=== PATIENT | male | born 1955 | race Caucasian/White ===

== ENCOUNTER → 2020-10-21 13:27 | Outpatient (CLI) | payer MEDICARE, SELFPAY ==
--- NOTE | 2020-11-04 14:56 | WPDHOMESLEEP ---
Sleep Study - Home Unattended Date of Study: 10/21/20 Ordering Provider: Saleem Collier MD Interpreting Provider: Alexandra Pineda MD Home Sleep Study Type: Apnea Link Air Height: 1.83 m Weight: 79.379 kg Body Mass Index: 23.7 Neck Circumference (inches): 14.75 [place]: 4 Reason for Sleep Study Elevated hemoglobin, low oxygen saturation by pulse oximetry Sleep History Matthew House is a 65 year old man with an elevated hemoglobin on July 25, 2020 with H/H 18/51.5. He had a [employer] overnight oximetry on room air July 30, 2020 that showed an oxygen desaturation index of 22 events per hour and a minimum saturation of 86%. He rarely awakens from sleep feeling short of breath. He does not awaken at night with heartburn, belching or coughing. He frequently snores, occasionally loudly enough that others complain about it. He rarely wakes up gasping for breath at night. He occasionally has trouble sleeping with a cold. He rarely has breathing problems at night observed by others. He does not sweat excessively at night. Occasionally notices his heart pounding or beating irregularly night. He does not fall asleep during the day, does not fall asleep involuntarily or while driving. He does not have loss of muscle tone was strong emotion. He does not have daytime difficulties due to excessive sleepiness. He does not feel paralyzed on waking or falling asleep. He rarely has vivid dreamlike scenes upon awakening or falling asleep. He does not feel afraid to go to sleep. He does not have nightmares. He occasionally members his dreams. He occasionally has racing thoughts. He does not feel sad or depressed. He rarely has anxiety. He does not have muscular tension. He rarely notices parts of his body jerking. He does not kick at night or have crawling or aching feelings in his legs. He rarely has any kind of leg pain at night. He does not have morning jaw pain. He does not grind his teeth during sleep. He rarely is bothered by pain during the day. He never is awakened by pain at night. He rarely wakes up feeling stiff in the morning, rarely with sore achy muscles rarely with pain in the neck and spine. He has vertigo. Normal bedtime 10 to 10:30 p.m. falling asleep usually within 10-15 minutes, waking 1 or 2 times, staying awake on average for 2-3 minutes. During this time he may pray, think over things in his life, and then he returns to sleep very quickly. He wakes the morning between 5:00 a.m. and 5:30 a.m.. His weekend schedule shows that he stays awake till 11:00 p.m. and wakes between 6:30 a.m. and 7:00 a.m., overall keeping the same schedule through out the week. He does not take naps. He often awakens feeling refreshed but this does not last all day. Habits: never smoked tobacco. CT the unusually 1 per day. Alcohol 0-1. Only occasionally. No recreational drugs. [facility] Past Medical History Medical History (Updated 11/04/20 @ 15:06 by Alexandra Pineda MD) COVID-26 apr 2020 Hypothyroidism (acquired) Mixed hyperlipidemia Polycythemia Surgical History Surgical History H/O mitral valve repair Hx of cholecystectomy Hx of hernia repair Family History Family History Other Carcinoma of colon Cerebrovascular accident Hypertension Social History Social History Smoking status: Never smoker Alcohol intake: never Medications Home Medications Medication Instructions Recorded Confirmed Type aspirin 81 mg tablet,delayed 81 mg PO DAILY 08/24/19 08/11/20 History release atenolol 25 mg tablet 25 mg PO DAILY #90 tablet 06/17/20 08/11/20 Rx levothyroxine 50 mcg tablet 50 mcg PO DAILY #90 tablet 06/26/20 08/11/20 Rx atorvastatin 10 mg tablet 10 mg PO DAILY #90 tablet 07/08/20 08/11/20 Rx Sleep Procedure This test was performed kayla
[2020-11-04 15:08] VITALS: BMI 23.7
== END ==
PROVIDERS: PCP Family Medicine; Visit Provider Family Medicine
DX: G47.33 Obstructive sleep apnea (adult) (pediatric) (principal)
CPT/HCPCS: 95806

== ENCOUNTER 2021-03-12 20:00 | Outpatient (CLI) | payer MEDICARE, SELFPAY ==
--- NOTE | 2021-04-01 09:43 | WPDSLEEPSTUD ---
Sleep Study Date of Study: 03/12/21 <Karen Salgado DO - Last Filed: 04/01/21 10:12> Ordering Provider: Saleem Collier MD <Karen Salgado DO - Last Filed: 04/01/21 10:12> Interpreting Physician: Karen Salgado DO <Karen Salgado DO - Last Filed: 04/01/21 10:12> Sleep Study Type: Polysomnogram <Karen Salgado DO - Last Filed: 04/01/21 10:12> Height: 1.83 m <Karen Salgado DO - Last Filed: 04/01/21 10:12> Weight: 79.379 kg <Karen Salgado DO - Last Filed: 04/01/21 10:12> Body Mass Index: 23.7 <Karen Salgado DO - Last Filed: 04/01/21 10:12> Neck Circumference (inches): 16 <Karen Salgado DO - Last Filed: 04/01/21 10:12> [place]: 2 <Karen Salgado DO - Last Filed: 04/01/21 10:12> Reason for Sleep Study The patient had an HSAT on 10/21/20 that showed an AHI of 4. With his polycythemia, unrefreshing sleep and daytime hypersomnia, it was recommended that he have a Splt lab study. <Karen Salgado DO - Last Filed: 04/01/21 10:12> Sleep History The patient is a 65 year old male with polycythemia, hypothyroidism and hyperlipidemia that had a home sleep test done in October 2020 that was negative for sleep disordered breathing. The patient was recommended to have a split night study due to his polycythemia and daytime symptoms. The patient states that he rarely awakens from sleep short of breath. He rarely awakens at night with heartburn, belching or cough. He occasionally snores loud enough that others complain. He occasionally has trouble sleeping when he has a [place]. He rarely wakes up gasping for air throughout the night. He rarely has breathing problems at night observed by others. He denies sweating excessively at night. He rarely has heart palpitations throughout the night. He denies falling asleep during the day and while driving. He denies sleep paralysis and cataplexy. He denies having trouble at school or work due to sleepiness. He rarely experiences vivid dreamlike scenes upon awakening or falling asleep. He denies having nightmares. He really has thoughts racing through his mind. He denies feeling sad or depressed. He really feels anxious. He rarely notices parts of his body jerk. He denies taking throughout the night. He denies crawling and aching feelings in his legs. He rarely experiences leg pain during the night. He knee denies grinding his teeth during sleep and awakening with jaw pain in the morning. He is really bothered by pain during the day and is never awakened by pain during the night. He rarely wakes up feeling stiff in the morning with sore and achy muscles. The patient goes to bed between 10 and 10:30 p.m. on both weekdays and weekends. It takes him 15-20 minutes to fall asleep. He will wake up 1-2 times throughout the night. When he awakens, he will try to fall back asleep or pray. He usually stays awake for a few minutes. He wakes up between 5 and 5:30 a.m. on the weekdays and between 6 and 6:30 a.m. on the weekends. He typically gets 6-7 hours of sleep per night. On the weekdays, he will get up immediately when he awakens. On the weekends, he will spend 30-40 minutes in bed after awakening. He currently lives with his , daughter, son-in-law and granddaughter. The patient denies consuming any caffeinated beverages within 2 hours of bedtime. He does not engage in physical exercise before bedtime. He will watch TV and read before falling asleep. He denies taking naps in the afternoon or the evening. He will drink 1 caffeinated beverage per day. He will drink 1-2 alcoholic beverages per week. He denies tobacco and recreational drug use. <Karen Salgado, - Last Filed: 04/01/21 10:12> [facility] Past Medical History Medical History: Medical History COVID-26 apr 2020 Hypothyroidism (acquired) Mixed hyperli
[2021-04-01 09:50] VITALS: BMI 23.7
== END 2021-03-13 08:09 | disposition home or self-care (01) ==
LOC: ANHCSM 03-13 07:54
PROVIDERS: PCP Family Medicine; Visit Provider Family Medicine
DX: G47.33 Obstructive sleep apnea (adult) (pediatric) (principal); R06.83 Snoring
CPT/HCPCS: 95810

== ENCOUNTER 2022-01-25 10:08 | Outpatient (CLI) | payer MEDICARE, SELFPAY ==
[2022-01-25 20:36] LABS: Basophils Absolute Auto 0.1 K/mm3 (0.0-0.1); Basophils Percent Auto 1.4 % (0.2-1.2); Eosinophils Absolute Auto 0.3 K/mm3 (0-0.3); Eosinophils Percent Auto 5.3 % (0-4.4); Immature Granulocyte Absolute 0.06 K/mm3 (0.00-0.031); Immature Granulocyte Percent A 1.1 % (0-0.5); Lymphocytes Absolute Auto 1.38 K/mm3 (0.9-3.2); Mean Corpuscular HGB Conc 32.9 g/dl (32-36); Mean Corpuscular Hemoglobin 32.4 pg (26-34); Mean Corpuscular Volume 98.7 fl (80-100); Mean Platelet Volume 10.8 fl (7.4-10.4); Monocytes Absolute Auto 0.6 K/mm3 (0.1-0.6); Monocytes Percent Auto 11.1 % (2.6-8.5); Neutrophils Absolute Auto 3.1 K/mm3 (1.3-6.7); Neutrophils Percent Auto 56.1 % (45.5-73.1); Platelet Count Result 208 k/mm3 (150-375); Red Blood Count 5.27 M/mm3 (4.6-6.20); Red Cell Distribution Width 12.4 % (11.5-14.5); White Blood Count 5.5 K/mm3 (4.5-10.0)
[2022-01-25 20:53] LABS: Hemoglobin 17.1 g/dL (14.0-18.0)
[2022-01-25 21:11] LABS: Alanine Aminotransferase 46 U/L (6-50); Albumin Level 4.4 g/dL (3.5-5.1); Alkaline Phosphatase 107 U/L (38-126); Anion Gap 9 mmol/L (8-16); Aspartate Amino Transferase 56 U/L (17-59); Bilirubin,Total 0.9 mg/dL (0.2-1.3); Blood Urea Nitrogen 13 mg/dL (9-20); Calcium 9.3 mg/dL (8.4-10.2); Carbon Dioxide 29 mmol/L (22-30); Chloride 100 mmol/L (98-107); Cholesterol 141 mg/dL (0-200); Estimated Glomerular Filt Rate > 60; Glucose 96 mg/dL (65-110); HDL Direct 29 mg/dL; Potassium 4.2 mmol/L (3.4-5.0); Sodium 138 mmol/L (137-145); Triglycerides 254 mg/dL (<150)
[2022-01-25 21:22] LABS: LDL Cholesterol Direct 68 mg/dL
== END 2022-01-25 10:09 | disposition home or self-care (01) ==
LOC: ANHGOSHLAB 10:10
PROVIDERS: PCP Family Medicine; Visit Provider Family Medicine
DX: E78.2 Mixed hyperlipidemia (principal); E03.9 Hypothyroidism, unspecified; D75.1 Secondary polycythemia; Z12.5 Encounter for screening for malignant neoplasm of prostate
CPT/HCPCS: 36415; 80053; 80061; 84153; 84443; 85025; G0103

== ENCOUNTER 2022-08-09 09:42 | Outpatient (CLI) | payer MEDICARE, SELFPAY ==
[2022-08-09 12:36] LABS: Basophils Absolute Auto 0.1 K/mm3 (0.0-0.1); Basophils Percent Auto 1.3 % (0.2-1.2); Eosinophils Absolute Auto 0.2 K/mm3 (0-0.3); Hematocrit 52.1 % (42.0-52.0); Hemoglobin 17.1 g/dL (14.0-18.0); Immature Granulocyte Absolute 0.05 K/mm3 (0.00-0.031); Lymphocytes Percent Auto 24.7 % (18.3-44.2); Mean Corpuscular HGB Conc 32.8 g/dl (32-36); Mean Corpuscular Hemoglobin 32.7 pg (26-34); Mean Corpuscular Volume 99.6 fl (80-100); Mean Platelet Volume 10.6 fl (7.4-10.4); Monocytes Absolute Auto 0.5 K/mm3 (0.1-0.6); Monocytes Percent Auto 9.3 % (2.6-8.5); Neutrophils Absolute Auto 3.1 K/mm3 (1.3-6.7); Neutrophils Percent Auto 59.7 % (45.5-73.1); Platelet Count Result 202 k/mm3 (150-375); Red Blood Count 5.23 M/mm3 (4.6-6.20); Red Cell Distribution Width 12.4 % (11.5-14.5); White Blood Count 5.3 K/mm3 (4.5-10.0)
[2022-08-09 12:44] LABS: Alanine Aminotransferase 46 U/L (6-50); Albumin Level 4.3 g/dL (3.5-5.1); Alkaline Phosphatase 102 U/L (38-126); Anion Gap 4 mmol/L (8-16); Aspartate Amino Transferase 41 U/L (17-59); Bilirubin,Total 0.9 mg/dL (0.2-1.3); Blood Urea Nitrogen 12 mg/dL (9-20); Carbon Dioxide 35 mmol/L (22-30); Chloride 98 mmol/L (98-107); Cholesterol 141 mg/dL (0-200); Estimated Glomerular Filt Rate > 60; Glucose 99 mg/dL (65-110); HDL Direct 28 mg/dL; Potassium 4.1 mmol/L (3.4-5.0); Sodium 137 mmol/L (137-145); Triglycerides 250 mg/dL (<150)
[2022-08-09 12:55] LABS: LDL Cholesterol Direct 78 mg/dL
[2022-08-09 13:15] LABS: Prostate Specific Antigen 3.2 ng/mL (< OR = 4.0)
== END 2022-08-09 09:43 | disposition home or self-care (01) ==
LOC: ANHGOSHLAB 09:43
PROVIDERS: PCP Family Medicine; Visit Provider Family Medicine
DX: E78.2 Mixed hyperlipidemia (principal); Z12.5 Encounter for screening for malignant neoplasm of prostate; E03.9 Hypothyroidism, unspecified; R97.20 Elevated prostate specific antigen [PSA]
CPT/HCPCS: 36415; 80053; 80061; 84153; 84443; 85025; G0103

== ENCOUNTER 2023-03-04 09:36 | Outpatient (CLI) | payer MEDICARE, SELFPAY ==
[2023-03-04 11:58] LABS: Cholesterol 131 mg/dL (0-200); HDL Direct 27 mg/dL; Triglycerides 163 mg/dL (<150)
[2023-03-04 12:11] LABS: LDL Cholesterol Direct 77 mg/dL
== END 2023-03-04 09:37 | disposition home or self-care (01) ==
LOC: ANHGOSHLAB 09:39
PROVIDERS: PCP Family Medicine; Visit Provider Physician Assistant
DX: E78.5 Hyperlipidemia, unspecified (principal)
CPT/HCPCS: 36415; 80061

== ENCOUNTER 2023-09-14 15:33 | Outpatient (CLI) | payer MEDICARE, SELFPAY ==
--- NOTE | ~2023-09-14 | XR_ITS ---
EXAMINATION: XR shoulder LT min 2V DATE: 09/14/2023 16:21 INDICATION: Left shoulder pain TECHNIQUE: AP internally and externally rotated, AP oblique externally rotated and transscapular Y vi ews of the left shoulder were obtained. COMPARISON: None FINDINGS: Normal alignment. No fracture. Negligible left glenohumeral and acromioclavicular osteoarthritis. [place] at the left humeral head. Visualized portion of the lungs are clear. Prior heart valve repa ir. Soft tissues are unremarkable. 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 Reviewed, dictated and finalized at location A.
== END 2023-09-14 15:34 ==
LOC: GOSHIMG 15:34
PROVIDERS: PCP Family Medicine; Visit Provider Nurse Practitioner Family
DX: M19.012 Primary osteoarthritis, left shoulder (principal)
CPT/HCPCS: 73030

== ENCOUNTER 2024-03-16 09:33 | Outpatient (CLI) | payer MEDICARE, SELFPAY ==
[2024-03-16 14:28] LABS: Basophils Absolute Auto 0.1 K/mm3 (0.0-0.1); Basophils Percent Auto 1.3 % (0.2-1.2); Eosinophils Absolute Auto 0.2 K/mm3 (0-0.3); Eosinophils Percent Auto 3.9 % (0-4.4); Hematocrit 50.6 % (42.0-52.0); Hemoglobin 16.6 g/dL (14.0-18.0); Immature Granulocyte Absolute 0.02 K/mm3 (0.00-0.031); Immature Granulocyte Percent A 0.4 % (0-0.5); Lymphocytes Absolute Auto 1.26 K/mm3 (0.9-3.2); Lymphocytes Percent Auto 27.5 % (18.3-44.2); Mean Corpuscular HGB Conc 32.8 g/dl (32-36); Mean Corpuscular Hemoglobin 32.4 pg (26-34); Mean Corpuscular Volume 98.8 fl (80-100); Mean Platelet Volume 10.8 fl (7.4-10.4); Monocytes Absolute Auto 0.6 K/mm3 (0.1-0.6); Monocytes Percent Auto 13.1 % (2.6-8.5); Neutrophils Absolute Auto 2.5 K/mm3 (1.3-6.7); Neutrophils Percent Auto 53.8 % (45.5-73.1); Platelet Count Result 184 k/mm3 (150-375); Red Blood Count 5.12 M/mm3 (4.6-6.20); Red Cell Distribution Width 12.3 % (11.5-14.5); White Blood Count 4.6 K/mm3 (4.5-10.0)
[2024-03-16 15:52] LABS: Alanine Aminotransferase 44 U/L (6-50); Albumin Level 4.3 g/dL (3.5-5.1); Alkaline Phosphatase 103 U/L (38-126); Anion Gap 7 mmol/L (4-12); Aspartate Amino Transferase 41 U/L (17-59); Bilirubin,Total 1.3 mg/dL (0.2-1.3); Blood Urea Nitrogen 14 mg/dL (9-20); Calcium 9.1 mg/dL (8.4-10.2); Carbon Dioxide 31 mmol/L (22-30); Chloride 100 mmol/L (98-107); Cholesterol 134 mg/dL (0-200); Estimated Glomerular Filt Rate > 60; Glucose 96 mg/dL (65-110); HDL Direct 29 mg/dL; Potassium 4.2 mmol/L (3.4-5.0); Sodium 138 mmol/L (137-145); Triglycerides 204 mg/dL (<150)
[2024-03-16 16:04] LABS: LDL Cholesterol Direct 65 mg/dL
[2024-03-16 16:12] LABS: Hepatitis C Virus Antibody Negative (Negative)
[2024-03-16 16:24] LABS: Prostate Specific Antigen 3.8 ng/mL (< OR = 4.0)
== END 2024-03-16 09:34 | disposition home or self-care (01) ==
PROVIDERS: PCP Family Medicine; Visit Provider Nurse Practitioner Family
DX: H81.20 Vestibular neuronitis, unspecified ear (principal); E78.2 Mixed hyperlipidemia; E03.9 Hypothyroidism, unspecified; D75.1 Secondary polycythemia; R97.20 Elevated prostate specific antigen [PSA]; Z11.59 Encounter for screening for other viral diseases; Z12.5 Encounter for screening for malignant neoplasm of prostate
CPT/HCPCS: 36415; 80053; 80061; 84153; 84443; 85025; 86803; G0103

== ENCOUNTER 2024-06-29 00:20 | Day surgery (SDC) | payer MEDICARE, SELFPAY ==
[2024-06-25 13:59] VITALS: BMI 25.1
--- OUTSIDE RECORDS SUMMARY | 2024-06-29 00:22 | XMS_ITS | Clinical Summary ---
Author Organization [facility] Address [address] [address] Care Team Providers Care Skills Auditor Name Role Phone Unavailable Primary Care Provider Unavailabl e Source Comments [facility],non-owned Affiliates and Associated Physician Practices is amultiple site organization consisting of ambulatory clinics and hospital sitesin [place], [place], [place] and [place]. This disclosure is being madepursuant to the Care Everywhere program and may not contain all information available regarding this patient. Last updated 18.[facility] Encounters Date Type Department Care Team Description 04/16/2024 Lab Requisition [facility] - DermPath Lab [address] [place] [address] Yash Lewis MD Neoplasm of uncertain behavior of skin from Last 3 Months Social History Tobacco Use Types Packs/Day Years Used Date Smoking Tobacco: Never Assessed Sex and Gender Information Value Date Recorded Sex Assigned at Not on file Gender Identity Not on file Sexual Orientation Not on file Plan of Treatment Health Maintenance Due Date Last Done Comments COLOGUARD (AGES 45-75) - COL ON CA SCREENING 1954 COLON MONITORING 1954 COLONOSCOPY - COLON CA SCREENING 1954 CT COLONOGRAPHY - COLON CA SCREENING 1954 Colorectal Cancer Screening 1954 FIT - COLON CA SCREENING 1954 FLEX SIG - COLON CA SCREENING 1954 LIPID TESTING 1954 HEPATITIS C SCREENING 08/21/1972 DTAP/TDAP/TD VACCINES (1 - Tdap) 1973 PNEUMOCOCCAL VACCINE 50+ (1 of 1 - PCV) 2004 ZOSTER VACCINE (1 of 2) 2004 COVID-19 VACCINE (1 - 2023-2 5 season) 2024 INFLUENZA VACCINE (#1) 2024 DEPRESSION SCREENING 05/09/2024 MEDICARE AWV CALENDAR YEAR 2024 Respiratory Syncytial Virus (RSV) Vaccine Pt: or over 60 yrs (1 - 1-dose 75+ series) 2029 HEPATITIS B VACCINE Aged Out No longe r eligible based on patient's age to complete this topic HIB VACCINE Aged Out No longer eligi ble based on patient's age to complete this topic HPV VACCINE Aged Out No longer eligi ble based on patient's age to complete this topic MENINGOCOCCAL (Group B) VACCINE Aged Out No longer eligible based on patient's age to complete this topic MENINGOCOCCAL VACCINE Aged Out No lisa chuck eligible based on patient's age to complete this topic Procedures Procedure Name Priority Date/Time Associated Diagnosis Comments DERMATOPATHOLOGY Routine 04/16/2024 3:33 AM INSTRUCTIONAL LEADER Neoplasm of uncertain behavior of skin from Last 3 Months Results * DERMATOPATHOLOGY (04/16/2024 3:33 AM INSTRUCTIONAL LEADER) Case Report Dermatopathology Report Case: [id number] Authorizing Provider: Yash Lewis MD Collected: 04/16/2024 03:33 AM Ordering Location: [facility] - Received: 04/17/2024 12:18 PM DermPath Lab Pathologist: Yvonne White MD Specimen: Skin, right mid back 4 4:25 PM INSTRUCTIONAL LEADER DERMATOPATHOLOGY LABORATORY Final Diagnosis Specimen A. SKIN, right mid back: LICHEN PLANUS-LIKE KERATOSIS (BENIGN LICHENOID KERATOSIS) (L82.1) 4 4:25 PM INSTRUCTIONAL LEADER DERMATOPATHOLOGY LABORATORY Clinical History Pigmented BCC vs atypical nevus 4 4:25 PM INSTRUCTIONAL LEADER DERMATOPATHOLOGY LABORATORY Gross Description Specimen A: Received is one formalin filled container labeled with the patient's name and designated right mid back. The specimen consists of a shave biopsy measuring 6x5x1 mm. Jar 0. 4 4:25 PM INSTRUCTIONAL LEADER DERMATOPATHOLOGY LABORATORY Microscopic Description Specimen A. SKIN, right mid back: The epidermis is mildly acanthotic. There is a lichenoid infiltrate with vacuolar changes of basilar keratinocytes and scattered necrotic keratinocytes. 4 4:25 PM [facility] DERMATOPATHOLOGY LABORATORY Disclaimer An external and internal positive and negative controls are appropriate for the histochemical, immunohistochemical and immunofluorescence stain(s) in this case (if any), except where stated explicitly. The performance characteristics of the stain(s) cited in this report were developed and its performance characteristic determined by the Dermatopathology Laboratory at [facility], directed by Dr. Melissa De Guzman. These tests need not be, and therefore are not, approved by the [place] Food and Drug Administration. The tests are used for clinical purposes. Billing Codes Specimen Charges Stain Charges 47155 1 4 4:25 PM INSTRUCTIONAL LEADER DERMATOPATHOLOGY LABORATORY Embedded Images 4 4:25 PM INSTRUCTIONAL LEADER DERMATOPATHOLOGY LABORATORY Pathology/Cytolo gy TISSUE SPECIMEN FROM SKIN / Unknown 04/16/2024 3:33 AM INSTRUCTIONAL LEADER 04/17/2024 12:18 PM INSTRUCTIONAL LEADER Yash Lewis MD LAB - PATHOLOGY/CYTO LOGY ORDERABLES DERMATOPATHOLOGY LABORATORY [facility] - Department of Dermatology [facility] Medicine [address] [place] [address], [address] [phone] from Last 3 Months
--- OUTSIDE RECORDS SUMMARY | 2024-06-29 00:22 | XMS_ITS | Referral Summary ---
Author Organization [facility] Address [address] [place] [address] Care Team Providers Care Chicken Fancier Name Role Phone Unavailable Primary Care Provider Unavailabl e Source Comments [facility],non-owned Affiliates and Associated Physician Practices is amultiple site organization consisting of ambulatory clinics and hospital sitesin [place], [place], [place] and [place]. This disclosure is being madepursuant to the Care Everywhere program and may not contain all information available regarding this patient. Last updated 18.[facility] Encounters Date Type Department Care Team Description 04/16/2024 Lab Requisition [facility] - DermPath Lab [address] [facility] [address] [place] [address] Yash Lewis MD Neoplasm of uncertain behavior of skin from Last 3 Months Social History Tobacco Use Types Packs/Day Years Used Date Smoking Tobacco: Never Assessed Sex and Gender Information Value Date Recorded Sex Assigned at Not on file Gender Identity Not on file Sexual Orientation Not on file Plan of Treatment Not on file Procedures Procedure Name Priority Date/Time Associated Diagnosis Comments DERMATOPATHOLOGY Routine 04/16/2024 3:33 AM WELDER RAILCAR MECHANIC Neoplasm of uncertain behavior of skin from Last 3 Months Results * DERMATOPATHOLOGY (04/16/2024 3:33 AM WELDER RAILCAR MECHANIC) Case Report Dermatopathology Report Case: [id number] Authorizing Provider: Yash Lewis MD Collected: 04/16/2024 03:33 AM Ordering Location: [facility] - Received: 04/17/2024 12:18 PM DermPath Lab Pathologist: Yvonne White MD Specimen: Skin, right mid back 12/11/202 4 4:25 PM WELDER RAILCAR MECHANIC DERMATOPATHOLOGY LABORATORY Final Diagnosis Specimen A. SKIN, right mid back: LICHEN PLANUS-LIKE KERATOSIS (BENIGN LICHENOID KERATOSIS) (L82.1) 4 4:25 PM WELDER RAILCAR MECHANIC DERMATOPATHOLOGY LABORATORY Clinical History Pigmented BCC vs atypical nevus 4 4:25 PM [facility] DERMATOPATHOLOGY LABORATORY Gross Description Specimen A: Received is one formalin filled container labeled with the patient's name and designated right mid back. The specimen consists of a shave biopsy measuring 6x5x1 mm. Jar 0. 4 4:25 PM WELDER RAILCAR MECHANIC DERMATOPATHOLOGY LABORATORY Microscopic Description Specimen A. SKIN, right mid back: The epidermis is mildly acanthotic. There is a lichenoid infiltrate with vacuolar changes of basilar keratinocytes and scattered necrotic keratinocytes. 4 4:25 PM [facility] DERMATOPATHOLOGY LABORATORY Disclaimer An external and internal positive and negative controls are appropriate for the histochemical, immunohistochemical and immunofluorescence stain(s) in this case (if any), except where stated explicitly. The performance characteristics of the stain(s) cited in this report were developed and its performance characteristic determined by the Dermatopathology Laboratory at [facility], directed by Dr. Melissa De Guzman. These tests need not be, and therefore are not, approved by the [place] Food and Drug Administration. The tests are used for clinical purposes. Billing Codes Specimen Charges Stain Charges 33145 1 4 4:25 PM WELDER RAILCAR MECHANIC DERMATOPATHOLOGY LABORATORY Embedded Images 4 4:25 PM [facility] DERMATOPATHOLOGY LABORATORY Pathology/Cytolo gy TISSUE SPECIMEN FROM SKIN / Unknown 04/16/2024 3:33 AM WELDER RAILCAR MECHANIC 04/17/2024 12:18 PM WELDER RAILCAR MECHANIC Yash Lewis MD LAB - PATHOLOGY/CYTO LOGY ORDERABLES DERMATOPATHOLOGY LABORATORY [facility] - Department of Dermatology [facility] Medicine [address] [place] [address], [address] [phone] from Last 3 Months
--- OUTSIDE RECORDS SUMMARY | 2024-06-29 00:22 | XMS_ITS | Encounter Summary ---
Author Organization [facility] Address [address] [place] [address] Care Team Providers Care Meteorology Professor Name Role Phone Unavailable Primary Care Provider Unavailabl e Encounter Details Date Type Department Care Team (Late st Contact Info) Description 09/27/2022 Lab Requisition [facility] - DermPath Lab [address] [place] [address] Yvonne Schuster PA-C [address] [place] [address] Neoplasm of uncertain behavior of skin Social History Tobacco Use Types Packs/Day Years Used Date Smoking Tobacco: Never Assessed Sex and Gender Information Value Date Recorded Sex Assigned at Not on file Gender Identity Not on file Sexual Orientation Not on file documented as of this encounter Plan of Treatment Not on file documented as of this encounter Procedures Procedure Name Priority Date/Time Associated Diagnosis Comments DERMATOPATHOLOGY Routine 09/27/2022 12:0 0 AM CDT Neoplasm of uncertain behavior of skin documented in this encounter Results * DERMATOPATHOLOGY (09/27/2022 12:00 AM CDT) Case Report Dermatopathology Report Case: [id number] Authorizing Provider: Yvonne Schuster PA-C Collected: 09/27/2022 12:00 AM Ordering Location: [facility] DermPath Lab Received: 09/28/2022 03:35 PM Pathologist: Sirisha De Guzman MD Specimen: Skin, left lower back 5:50 PM CDT DERMATOPATHOLOGY LABORATORY Final Diagnosis Specimen A. 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 The specimen consists of a shave biopsy measuring [id number]. Jar 0. 3 5:50 PM CDT DERMATOPATHOLOGY LABORATORY Microscopic Description Specimen A. SKIN, left lower back: There are nests of cytologically bland melanocytes within the dermis that mature with depth. 3 5:50 PM CDT DERMATOPATHOLOGY LABORATORY Disclaimer An external and internal positive and negative controls are appropriate for the histochemical, immunohistochemical and immunofluorescence stain(s) in this case (if any), except where stated explicitly. The performance characteristics of the stain(s) cited in this report were developed and its performance characteristic determined by the Dermatopathology Laboratory at [facility], directed by Dr. Melissa De Guzman. These tests need not be, and therefore are not, approved by the [place] Food and Drug Administration. The tests are used for clinical purposes. Billing Codes Specimen Charges Stain Charges 30947 1 3 5:50 PM CDT DERMATOPATHOLOGY LABORATORY Embedded Images 3 5:50 PM CDT DERMATOPATHOLOGY LABORATORY Pathology/Cytolog y TISSUE SPECIMEN FROM SKIN / Unknown 09/27/2022 09/28/2022 3:35 PM CDT Yvonne Schuster PA-C LAB - PATHOLOGY/CYTO LOGY ORDERABLES DERMATOPATHOLOGY LABORATORY [facility] - Department of Dermatology [address], [address] [phone] documented in this encounter Visit Diagnoses Diagnosis Neoplasm of uncertain behavior of skin documented in this encounter
--- OUTSIDE RECORDS SUMMARY | 2024-06-29 00:22 | XMS_ITS | Encounter Summary ---
Author Organization [facility] Address [address] [place] [address] Care Team Providers Care Brass Buffer Name Role Phone Unavailable Primary Care Provider Unavailabl e Encounter Details Date Type Department Care Team (Late st Contact Info) Description 07/07/2023 Lab Requisition [facility] - DermPath Lab [address] [place] [address] Yash Lewis MD [facility] DERMATOLOGY [address] [place] [phone] Melanocytic nevi of trunk Social History Tobacco Use Types Packs/Day Years Used Date Smoking Tobacco: Never Assessed Sex and Gender Information Value Date Recorded Sex Assigned at Not on file Gender Identity Not on file Sexual Orientation Not on file documented as of this encounter Plan of Treatment Not on file documented as of this encounter Procedures Procedure Name Priority Date/Time Associated Diagnosis Comments DERMATOPATHOLOGY Routine 07/07/2023 3:33 AM ROTARY FURNACE TENDER Melanocytic nevi of trunk documented in this encounter Results * DERMATOPATHOLOGY (07/07/2023 3:33 AM ROTARY FURNACE TENDER) Case Report Dermatopathology Report Case: [id number] Authorizing Provider: Yash Lewis MD Collected: 07/07/2023 03:33 AM Ordering Location: [facility] - Received: 07/08/2023 12:23 PM DermPath Lab Pathologist: Yvnone White MD Specimen: Skin, left lower back 1:59 PM ROTARY FURNACE TENDER DERMATOPATHOLOGY LABORATORY Final Diagnosis Specimen A. SKIN, left lower back: RESIDUAL COMPOUND MELANOCYTIC NEVUS (D22.5) NOT PRESENT AT MARGIN DERMAL SCAR (L90.5) (see microscopic description and comment) 1:59 PM [facility] DERMATOPATHOLOGY LABORATORY Clinical History Atypical Nevus. Check margins. 1:59 PM ROTARY FURNACE TENDER DERMATOPATHOLOGY LABORATORY Gross Description Specimen A: Received is one formalin filled container labeled with the patient's name and designated left lower back. The specimen consists of a non-oriented ellipse of skin measuring [id number] mm. The epidermal surface is unremarkable. The margin is inked green. The 12 o'clock and 6 o'clock tips are submitted in cassette 1. The remainder of the ellipse is serially sectioned and submitted in cassette 2-4. Jar 0. 1:59 PM [facility] DERMATOPATHOLOGY LABORATORY Microscopic Description Specimen A. SKIN, left lower back: There are nests of melanocytes at the dermal-epidermal junction and within the dermis. This lesion is not present at the margin of the specimen. MART-1/Melan-A immunohistochemical stain highlights the melanocytes as above. There are fibroblasts and collagen bundles oriented parallel to the skin surface with elongated blood vessels, some of which are oriented perpendicular to the skin surface. COMMENT: The two prior case's was reviewed in conjunction. The remaining melanocytic lesion has benign features. Given the findings in this specimen and [id number], [id number] is favored to represent partial sampling of a persistent/recurren t nevus. 1:59 PM [facility] DERMATOPATHOLOGY LABORATORY Disclaimer An external and internal positive and negative controls are appropriate for the histochemical, immunohistochemical and immunofluorescence stain(s) in this case (if any), except where stated explicitly. The performance characteristics of the stain(s) cited in this report were developed and its performance characteristic determined by the Dermatopathology Laboratory at [facility], directed by Dr. Melissa De Guzman. These tests need not be, and therefore are not, approved by the [place] Food and Drug Administration. The tests are used for clinical purposes. Billing Codes Specimen Charges Stain Charges 20902 1 37416 1 1:59 PM [facility] DERMATOPATHOLOGY LABORATORY Embedded Images 1:59 PM [facility] DERMATOPATHOLOGY LABORATORY Pathology/Cytolo gy TISSUE SPECIMEN FROM SKIN / Unknown 07/07/2023 3:33 AM ROTARY FURNACE TENDER 07/08/2023 12:23 PM ROTARY FURNACE TENDER Yash Lewis MD LAB - PATHOLOGY/CYTO LOGY ORDERABLES DERMATOPATHOLOGY LABORATORY [facility] - Department of Dermatology [facility] Medicine [address] [place] [address], [address] [phone] documented in this encounter Visit Diagnoses Diagnosis Melanocytic nevi of trunk Benign neoplasm of skin of trunk, except scrotum documented in this encounter
--- OUTSIDE RECORDS SUMMARY | 2024-06-29 00:23 | XMS_ITS | Encounter Summary ---
Author Organization [facility] Address [address] [facility] [place] [address] Care Team Providers Care Product Engineer Name Role Phone Unavailable Primary Care Provider Unavailabl e Encounter Details Date Type Department Care Team (Late st Contact Info) Description 04/11/2023 Lab Requisition [facility] - D[facility] Lab [address] [place] [address] Yvonne Schuster PA-C [address] [place] [phone] Neoplasm of uncertain behavior of skin [...] Priority Date/Time Associated Diagnosis Comments DERMATOPATHOLOGY Routine 04/11/2023 12:0 0 AM APPRENTICE TECHNICIAN Neoplasm of uncertain behavior of skin documented in this encounter Results * DERMATOPATHOLOGY (04/11/2023 12:00 AM APPRENTICE TECHNICIAN) Case Report Dermatopathology Report Case: [id number] Authorizing Provider: Yvonne Schuster PA-C Collected: 04/11/2023 12:00 AM Ordering Location: [facility] DermPath Lab Received: 04/12/2023 10:53 AM Pathologist: Yvonne White MD Specimen: Skin, left lower back 1:00 PM APPRENTICE TECHNICIAN DERMATOPATHOLOGY LABORATORY Final Diagnosis Specimen A. SKIN, left lower back: COMPOUND MELANOCYTIC PROLIFERATION WITH UNDERLYING DERMAL FIBROSIS; PRESENT AT MARGIN (D48.5) (see microscopic description and comment) 3 1:00 PM [facility] DERMATOPATHOLOGY LABORATORY Clinical History Atypical Nevus 3 1:00 PM [facility] DERMATOPATHOLOGY LABORATORY Gross Description Specimen A: Received is one formalin filled container labeled with the patient's name and designated left lower back. The specimen consists of a shave biopsy measuring 6x6x1 mm. Jar 0. 1:00 PM [facility] DERMATOPATHOLOGY LABORATORY Microscopic Description Specimen A. SKIN, left lower back: Sections show a compound melanocytic proliferation. There is a lentiginous proliferation of melanocytes between irregular nests. Scattered melanocytes show evidence of upward migration within the epidermis. In the dermis there are irregular nests of melanocytes. There is surrounding dermal fibrosis. MART-1/Melan-A immunohistochemical stain highlights the melanocytes as above. This lesion is present at the margin of the specimen. COMMENT: While a persistent/recurren t nevus was considered given the prior biopsy at the same location ([id number]), the architectural and cytological atypia is concerning. Because this lesion is present at the margin of the specimen, symmetry and circumscription can not be evaluated. Therefore, a complete but conservative re-excision is recommended to evaluate this lesion in its entirety. This case was also reviewed by Dr. Kaitlin Lopez who agrees with the diagnosis. 1:00 PM [facility] DERMATOPATHOLOGY LABORATORY Disclaimer An external and internal positive and negative controls are appropriate for the histochemical, immunohistochemical and immunofluorescence stain(s) in this case (if any), except where stated explicitly. The performance characteristics of the stain(s) cited in this report were developed and its performance characteristic determined by the Dermatopathology Laboratory at [facility], directed by Dr. Melissa De Guzman. These tests need not be, and therefore are not, approved by the [place] Food and Drug Administration. The tests are used for clinical purposes. Billing Codes Specimen Charges Stain Charges 55807 1 60276 1 3 1:00 PM [facility] DERMATOPATHOLOGY LABORATORY Embedded Images 1:00 PM [facility] DERMATOPATHOLOGY LABORATORY Pathology/Cytolog y TISSUE SPECIMEN FROM SKIN / Unknown 04/11/2023 04/12/2023 10:53 AM APPRENTICE TECHNICIAN Yvonne Schuster PA-C LAB - PATHOLOGY/CYTO LOGY ORDERABLES DERMATOPATHOLOGY LABORATORY [facility] - Department of Dermatology [facility] Medicine [address] [place] [address], [address] [phone] documented in this encounter Visit Diagnoses Diagnosis Neoplasm of uncertain behavior of skin documented in this encounter
--- OUTSIDE RECORDS SUMMARY | 2024-06-29 00:23 | XMS_ITS | Patient Health Summary ---
Author Organization [facility] Address [address] [place] [address] Care Team Providers Care Charhouse Worker Name Role Phone Unavailable Primary Care Provider Unavailabl e Note from [facility],non-owned Affiliates and Associated Physician Practices is amultiple site organization consisting of ambulatory clinics and hospital sitesin [place], [place], [place] and [place]. This disclosure is being madepursuant to the Care Everywhere program and may not contain all information available regarding this patient. Last updated 18.[facility] [employer] Social History Tobacco Use Types Packs/Day Years Used Date Smoking Tobacco: Never Assessed Sex and Gender Information Value Date Recorded Sex Assigned at Not on file Gender Identity Not on file Sexual Orientation Not on file Procedures * DERMATOPATHOLOGY(Performed 04/16/2024) Performed for Neoplasm of uncertain behavior of skin * DERMATOPATHOLOGY(Performed 07/07/2023) Performed for Melanocytic nevi of trunk * DERMATOPATHOLOGY(Performed 04/11/2023) Performed for Neoplasm of uncertain behavior of skin * DERMATOPATHOLOGY(Performed 09/27/2022) Performed for Neoplasm of uncertain behavior of skin Results * DERMATOPATHOLOGY (04/16/2024 3:33 AM SEO ASSISTANT) Only the most recent of4 resultswithin the time period is included. Case Report Dermatopathology Report Case: [id number] Authorizing Provider: Yash Lewis MD Collected: 04/16/2024 03:33 AM Ordering Location: [facility] - Received: 04/17/2024 12:18 PM DermPath Lab Pathologist: Yvonne White MD Specimen: Skin, right mid back 4:25 PM SEO ASSISTANT DERMATOPATHOLOGY LABORATORY Final Diagnosis Specimen A. SKIN, right mid back: LICHEN PLANUS-LIKE KERATOSIS (BENIGN LICHENOID KERATOSIS) (L82.1) 4 4:25 PM [facility] DERMATOPATHOLOGY LABORATORY Clinical History Pigmented BCC vs atypical nevus 4:25 PM [facility] DERMATOPATHOLOGY LABORATORY Gross Description Specimen A: Received is one formalin filled container labeled with the patient's name and designated right mid back. The specimen consists of a shave biopsy measuring 6x5x1 mm. Jar 0. 4:25 PM [facility] DERMATOPATHOLOGY LABORATORY Microscopic Description Specimen A. SKIN, right mid back: The epidermis is mildly acanthotic. There is a lichenoid infiltrate with vacuolar changes of basilar keratinocytes and scattered necrotic keratinocytes. 4 4:25 PM [facility] DERMATOPATHOLOGY LABORATORY Disclaimer An external and internal positive and negative controls are appropriate for the histochemical, immunohistochemical and immunofluorescence stain(s) in this case (if any), except where stated explicitly. The performance characteristics of the stain(s) cited in this report were developed and its performance characteristic determined by the Dermatopathology Laboratory at [facility], directed by Dr. Melissa De Guzman. These tests need not be, and therefore are not, approved by the [place] Food and Drug Administration. The tests are used for clinical purposes. Billing Codes Specimen Charges Stain Charges 00349 1 4 4:25 PM [facility] DERMATOPATHOLOGY LABORATORY Embedded Images 4 4:25 PM [facility] DERMATOPATHOLOGY LABORATORY Pathology/Cytolo gy TISSUE SPECIMEN FROM SKIN / Unknown 04/16/2024 3:33 AM SEO ASSISTANT 04/17/2024 12:18 PM SEO ASSISTANT Yash Lewis MD LAB - PATHOLOGY/CYTO LOGY ORDERABLES DERMATOPATHOLOGY LABORATORY [facility] - Department of Dermatology [address], [address] [phone]
--- OUTSIDE RECORDS SUMMARY | 2024-06-29 00:23 | XMS_ITS | Encounter Summary ---
Author Organization [facility] Address [address] [place] [address] Care Team Providers Care Scale Attendant Name Role Phone Unavailable Primary Care Provider Unavailabl e Encounter Details Date Type Department Care Team (Late st Contact Info) Description 04/16/2024 Lab Requisition [facility] - [facility]erm[facility] Lab [address] [place] [address] Yash Lewis MD [facility] DERMATOLOGY [address] [place] [phone] Neoplasm of uncertain behavior of skin [...] Diagnosis Comments DERMATOPATHOLOGY Routine 04/16/2024 3:33 AM AUTOMATIC BLOCKER Neoplasm of uncertain behavior of skin documented in this encounter Results * DERMATOPATHOLOGY (04/16/2024 3:33 AM AUTOMATIC BLOCKER) Case Report Dermatopathology Report Case: [id number] Authorizing Provider: Yash Lewis MD Collected: 04/16/2024 03:33 AM Ordering Location: [facility] Physician [facility] - Received: 04/17/2024 12:18 PM DermPath Lab Pathologist: Yvonne White MD Specimen: Skin, right mid back 4:25 PM AUTOMATIC BLOCKER DERMATOPATHOLOGY LABORATORY Final Diagnosis Specimen A. SKIN, right mid back: LICHEN PLANUS-LIKE KERATOSIS (BENIGN LICHENOID KERATOSIS) (L82.1) 4 4:25 PM [facility] DERMATOPATHOLOGY LABORATORY Clinical History Pigmented BCC vs atypical nevus 4 4:25 PM [facility] DERMATOPATHOLOGY LABORATORY Gross Description Specimen A: Received is one formalin filled container labeled with the patient's name and designated right mid back. The specimen consists of a shave biopsy measuring 6x5x1 mm. Jar 0. 4 4:25 PM [facility] DERMATOPATHOLOGY LABORATORY Microscopic Description Specimen A. SKIN, right mid back: The epidermis is mildly acanthotic. There is a lichenoid infiltrate with vacuolar changes of basilar keratinocytes and scattered necrotic keratinocytes. 4 4:25 PM [facility] DERMATOPATHOLOGY LABORATORY Disclaimer An external and internal positive and negative controls are appropriate for the histochemical, immunohistochemical and immunofluorescence stain(s) in this case (if any), except where stated explicitly. The performance characteristics of the stain(s) cited in this report were developed and its performance characteristic determined by the Dermatopathology Laboratory at [facility], directed by Dr. Melissa De Guzman. These tests need not be, and therefore are not, approved by the [place] Food and Drug Administration. The tests are used for clinical purposes. Billing Codes Specimen Charges Stain Charges 87615 1 4 4:25 PM [facility] DERMATOPATHOLOGY LABORATORY Embedded Images 4:25 PM [facility] DERMATOPATHOLOGY LABORATORY Pathology/Cytolo gy TISSUE SPECIMEN FROM SKIN / Unknown 04/16/2024 3:33 AM AUTOMATIC BLOCKER 04/17/2024 12:18 PM AUTOMATIC BLOCKER Yash Lewis MD LAB - PATHOLOGY/CYTO LOGY ORDERABLES DERMATOPATHOLOGY LABORATORY [facility] - Department of Dermatology [address], [address] [phone] documented in this encounter Visit Diagnoses Diagnosis Neoplasm of uncertain behavior of skin documented in this encounter
[2024-06-29 08:15] VITALS: BP 139/84; PULSE 70; RESP 18; TEMP 35.6; O2SAT 96; BMI 24.5
[2024-06-29] MEDS: LACTATED RINGERS 1,000 ML 150 ML IV CONT (08:38)
--- NOTE | 2024-06-29 09:24 | P.PNAN_ITS ---
Anes - Initial Pre Proc Eval Procedure: Operation Date: 06/29/24 09:30 Proposed Procedures p Screening Colonoscopy - Zaid Grady MD Date/Time: 06/29/24 09:24 Surgeon: Zaid Grady MD Pre Op Diagnosis: hx colon polyps Patient Data Age: 68 Gender: M Height: 1.83 m Weight: 82 kg Last Vital Signs Temp 96.0 F L 06/29/24 08:15 Pulse 70 06/29/24 08:15 Resp 18 06/29/24 08:15 BP 139/84 06/29/24 08:15 Pulse Ox 96 06/29/24 08:15 O2 Del Method Room Air 06/29/24 08:15 Allergies Allergy/AdvReac Type Severity Reaction Status Date / Time naproxen Allergy Unknown urinates Verified 06/25/24 13:56 alot Home Medications ?Medication ?Instructions ?Recorded ?Confirmed ?Type aspirin 81 mg tablet,delayed 81 mg PO DAILY 08/24/19 06/29/24 History release multivitamin 1 tablet PO DAILY 01/20/22 06/29/24 History levothyroxine 50 mcg tablet See Rx Instructions .Route 03/19/24 06/29/24 Rx .COMPLEX #100 tabs triamcinolone acetonide 0.025 % 1 applic topical BID PRN rash 03/22/24 06/29/24 History topical cream atenolol 25 mg tablet See Rx Instructions .Route 05/07/24 06/29/24 Rx .COMPLEX #100 tabs atorvastatin 10 mg tablet See Rx Instructions .Route 05/07/24 06/29/24 Rx .COMPLEX #100 tabs carboxymethylcellulose sodium 1 % 1 drp EACH EYE DAILY 06/25/24 06/29/24 History eye liquid gel drops elderberry fruit 200 mg capsule 200 mg PO DAILY 06/25/24 06/29/24 History Patient hx anesthesia problems: none Family hx anesthesia problems: none Results Review: All pre-operative results and documents have been reviewed as part of the pre- operative evaluation. [facility] Past Medical History Medical History Polycythemia COVID-26 apr 2020 Hypothyroidism (acquired) Mixed hyperlipidemia Surgical History Surgical History Hx of cholecystectomy H/O mitral valve repair 2011 Hx of hernia repair Family History Family History Other Carcinoma of colon Cerebrovascular accident Hypertension Social History Social History Smoking status: Never smoker Alcohol intake: never Substance use: never Substance use type: does not use Lack of Transportation: No Lack of Food: Never True Current Housing: I Have Housing Concerned About Future Housing: No Difficulty Paying Gas/Electric Bills: No Difficulty Paying for Meds: No Currently Unemployed: No Education: High School Diploma/GED Anes - Eval Final PreProcedure Day of Procedure 06/29/24 09:24 Patient weight: overweight Lungs: normal air movement Airway: Mallampati scale class II Neurological: alert and oriented Last oral intake: >/= 8 hours ASA classification: II Emergent: no Anesthetic plan: proceed Anesthesia type and monitoring: general GIVS and standard monitoring Results Review: All pre-operative results and documents have been reviewed as part of the pre- operative evaluation. HTN, hyperlipidemia. Informed Consent: The patient's anesthetic plan and its attendant risks and benefits were discussed with the patient/family/POA. Questions were solicited and answers provided to the satisfaction of the patient/family/POA.
--- NOTE | 2024-06-29 09:26 | P.HP_ITS ---
H&P: HPI History of Present Illness Date/Time: 06/29/24 09:26 Chief Complaint: Family history of colorectal cancer - History of colon polyps Narrative: This patient has family history of colorectal cancer. his mother had it when she was in her 60s. The patient has a history of colonic polyps, the last colonoscopy was 5 years ago. Review of Systems Review of Systems: All systems reviewed & are unremarkable except as noted in HPI and below PMFSH Past Medical History Medical History Polycythemia COVID-26 apr 2020 Hypothyroidism (acquired) Mixed hyperlipidemia Surgical History Surgical History Hx of cholecystectomy H/O mitral valve repair 2011 Hx of hernia repair Family History Family History Other Carcinoma of colon Cerebrovascular accident Hypertension Social History Social History Smoking status: Never smoker Alcohol intake: never Substance use: never Substance use type: does not use Lack of Transportation: No Lack of Food: Never True Current Housing: I Have Housing Concerned About Future Housing: No Difficulty Paying Gas/Electric Bills: No Difficulty Paying for Meds: No Currently Unemployed: No Education: High School Diploma/GED Meds Home Medications and Allergies Home Medications ?Medication ?Instructions ?Recorded ?Confirmed ?Type aspirin 81 mg tablet,delayed 81 mg PO DAILY 08/24/19 06/29/24 History release multivitamin 1 tablet PO DAILY 01/20/22 06/29/24 History levothyroxine 50 mcg tablet See Rx Instructions .Route 03/19/24 06/29/24 Rx .COMPLEX #100 tabs triamcinolone acetonide 0.025 % 1 applic topical BID PRN rash 03/22/24 06/29/24 History topical cream atenolol 25 mg tablet See Rx Instructions .Route 05/07/24 06/29/24 Rx .COMPLEX #100 tabs atorvastatin 10 mg tablet See Rx Instructions .Route 05/07/24 06/29/24 Rx .COMPLEX #100 tabs carboxymethylcellulose sodium 1 % 1 drp EACH EYE DAILY 06/25/24 06/29/24 History eye liquid gel drops elderberry fruit 200 mg capsule 200 mg PO DAILY 06/25/24 06/29/24 History Allergies Allergy/AdvReac Type Severity Reaction Status Date / Time naproxen Allergy Unknown urinates Verified 06/25/24 13:56 alot Vital Signs Vital Signs - 24 hr 06/29/24 08:15 Temperature 96.0 F L Pulse Rate 70 Respiratory Rate 18 Blood Pressure 139/84 Pulse Oximetry 96 Oxygen Delivery Room Air Exam Const: General: cooperative and healthy appearing Resp: Effort & Inspection: normal respiratory effort and able to speak in complete sentences Auscultation: clear to auscultation bilaterally Cardio: Rate: regular rate Rhythm: regular rhythm GI: Inspection: normal to inspection GI Palp: No No hepatosplenomegaly p resent Auscultation: normal bowel sounds Rectal Exam: deferred Skin: General skin exam: normal color Psych: Appearance: grossly normal Mental Status: mental status grossly normal Assessment and Plan Assessment and plan (1) Benign colon polyp: Code(s): K63.5 - Polyp of colon Status: Acute Assessment and Plan: The patient is deemed a good candidate for the procedure. Consent signed. Will proceed.
[2024-06-29 10:14] VITALS: BP 95/61; PULSE 58; RESP 16; O2SAT 94
[2024-06-29 10:24] VITALS: BP 96/66; PULSE 58; RESP 25; O2SAT 99
[2024-06-29 10:34] VITALS: BP 111/73; PULSE 59; RESP 24; O2SAT 100
== END 2024-06-29 11:00 | disposition home or self-care (01) ==
PROVIDERS: PCP Family Medicine; Visit Provider Internal Medicine Gastroenterology
PROC: 0DJD8ZZ Inspection of Lower Intestinal Tract, Via Natural or Artificial Opening Endoscopic (ICD-10-PCS; CPT 45378; principal; 2024-06-29 09:30)
DX: Z12.11 Encounter for screening for malignant neoplasm of colon (principal); D12.0 Benign neoplasm of cecum; K63.5 Polyp of colon; K57.30 Diverticulosis of large intestine without perforation or abscess without bleeding; K64.8 Other hemorrhoids; Z80.0 Family history of malignant neoplasm of digestive organs
CPT/HCPCS: 45385; 88305; J2003; J2704; J7120

== ENCOUNTER 2024-10-22 09:09 | Outpatient (CLI) | payer MEDICARE, SELFPAY ==
--- OUTSIDE RECORDS SUMMARY | 2024-10-22 09:34 | XMS_ITS | Encounter Summary ---
Author Organization [facility] Address [address] [place] [address] Care Team Providers Care Desk Manager Name Role Phone Unavailable Primary Care Provider Unavailabl e Encounter Details Date Type Department Care Team (Late st Contact Info) Description 04/16/2024 Lab Requisition [facility] - DermPath Lab [address] [place] [address] Yash Lewis MD [facility] DERMATOLOG[facility] [address] [place] [phone] Neoplasm of uncertain behavior of skin Social History Tobacco Use Types Packs/Day Years Used Date Smoking Tobacco: Never Assessed Sex and Gender Information Value Date Recorded Sex Assigned at Not on file Legal Sex Male 7:49 AM CDT Gender Identity Not on file Sexual Orientation Not on file documented as of this encounter Plan of Treatment Not on file documented as of this encounter Procedures Procedure Name Priority Date/Time Associated Diagnosis Comments DERMATOPATHOLOGY Routine 04/16/2024 3:33 AM FAMILY DEVELOPMENT SPECIALIST Neoplasm of uncertain behavior of skin documented in this encounter Results * DERMATOPATHOLOGY (04/16/2024 3:33 AM FAMILY DEVELOPMENT SPECIALIST) Case Report Dermatopathology Report Case: [id number] Authorizing Provider: Yash Lewis MD Collected: 04/16/2024 03:33 AM Ordering Location: [facility] - Received: 04/17/2024 12:18 PM Derm[facility] Lab Pathologist: Yvonne White MD Specimen: Skin, right mid back 4:25 PM FAMILY DEVELOPMENT SPECIALIST DERMATOPATHOLOGY LABORATORY Final Diagnosis Specimen A. SKIN, right mid back: LICHEN PLANUS-LIKE KERATOSIS (BENIGN LICHENOID KERATOSIS) (L82.1) 4:25 PM [facility] DERMATOPATHOLOGY LABORATORY at [address] FAMILY DEVELOPMENT SPECIALIST Clinical History Pigmented BCC vs atypical nevus 4:25 PM [facility] DERMATOPATHOLOGY LABORATORY Gross Description Specimen A: Received is one formalin filled container labeled with the patient's name and designated right mid back. The specimen consists of a shave biopsy measuring 6x5x1 mm. Jar 0. 4:25 PM [facility] DERMATOPATHOLOGY LABORATORY Microscopic Description Specimen A. SKIN, right mid back: The epidermis is mildly acanthotic. There is a lichenoid infiltrate with vacuolar changes of basilar keratinocytes and scattered necrotic keratinocytes. 4:25 PM [facility] DERMATOPATHOLOGY LABORATORY Disclaimer An external and internal positive and negative controls are appropriate for the histochemical, immunohistochemical and immunofluorescence stain(s) in this case (if any), except where stated explicitly. The performance characteristics of the stain(s) cited in this report were developed and its performance characteristic determined by the Dermatopathology Laboratory at [facility], directed by Dr. Melissa De Guzman. These tests need not be, and therefore are not, approved by the [place] Food and Drug Administration. The tests are used for clinical purposes. Billing Codes Specimen Charges Stain Charges 85753 1 4:25 PM [facility] DERMATOPATHOLOGY [facility]ORATORY Embedded Images 4:25 PM [facility] DERMATOPATH[facility]Y [facility]ORATORY Pathology/Cytolo gy TISSUE SPECIMEN FROM SKIN / Unknown 04/16/2024 3:33 AM FAMILY DEVELOPMENT SPECIALIST 04/17/2024 12:18 PM FAMILY DEVELOPMENT SPECIALIST us Yash Lewis MD LAB - PATHOLOGY/CYTOLOGY JENY BARRY Final Result DERMATOPATHOLOGY LABORATORY [facility] - Department of Dermatology [address] [place] [address], [facility] [phone] documented in this encounter Visit Diagnoses Diagnosis Neoplasm of uncertain behavior of skin documented in this encounter
--- OUTSIDE RECORDS SUMMARY | 2024-10-22 09:34 | XMS_ITS | Clinical Summary ---
Author Organization [facility] Address [address] [place] [address] Care Team Providers Care Styrene Dehydration Reactor Operator Name Role Phone Mary Estrada MD Primary Care Provider + Allergies Active Allergy Reactions Criticality Noted Date Comments Naproxen Medications AMOXICILLIN 500 mg capsule TAKE 1 HOUR PRIOR TO DENTAL APPOINTMENT 9 Active atenolol (TENORMIN) 25 mg tablet TAKE 1 TABLET DAILY. Active atorvastatin (LIPITOR) 10 mg tablet Take 1 tablet (10 mg total) by mouth daily 8 Active levothyroxine (SYNTHROID, LEVOTHROID) 50 mcg tablet Take 1 tablet (50 mcg total) by mouth daily 8 Active omega 8-ueq-dlo-fish oil (FISH OIL) 1,000 mg (120 mg-180 mg) capsule Take 1 capsule (1,000 mg total) by mouth 3 (three) times a day Active aspirin 81 mg tablet Take 1 tablet (81 mg total) by mouth daily Active multivit with min-folic acid 200 mcg tablet,chewable Take by mouth Active Active Problems Problem Noted Date Diagnosed Date Abdominal mass 12/11/2014 Abdominal pain 12/06/2014 Chest pain 09/14/2011 Mitral valve disease 06/15/2011 Encounters Date Type Department Care Team Description 09/14/2024 7:00 AM CDT - 09/14/2024 11:59 PM CDT Hospital Encounter [facility] Cardiac Diagnostic Lab [address] [facility] [address] [place] [address] Mitral valve disease Discharge Disposition: Discharge to home or self care 09/14/2024 Telephone [facility] Cardiology [address] [facility] 8th [place] [address] [place] [phone] Celeste Recio 09/14/2024 Results Follow-Up [facility] Cardiology [address] [place] [address] 8th [place] [address] [place] [phone] Aashish Pearce MD Transthoracic Echo (TTE) Complete W Doppler/CF 09/03/2024 3:00 PM CDT Office Visit [facility] Cardiology [address] [place] [address] 8th [place] [address] [place] [phone] Aashish Pearce MD Mitral valve disease (Primary Dx) from Last 3 Months Family History Medical History Relation Name Comments Heart attack Brother Heart attack Maternal Grandfather Family history of myocardial infarction - Relation: Grandfather (Added by TW Conv) Mitral valve prolapse Paternal Grandfather Relation Name Status Comments Brother Maternal Grandfather Paternal Grandfather Social History Tobacco Use Types Packs/Day Years Used Date Smoking Tobacco: Never Smokeless Tobacco: Never Sex and Gender Information Value Date Recorded Sex Assigned at Not on file Legal Sex Male 2:36 AM ENVELOPE STUFFER Gender Identity Not on file Sexual Orientation Not on file Obstetrics History Last Filed Vital Signs Vital Sign Reading Time Taken Comments Blood Pressure 123/78 09/03/2024 3:05 PM CDT Pulse 72 09/03/2024 3:05 PM CDT Temperature 36.7 C (98 F) 06/30/2020 3:28 PM ENVELOPE STUFFER Respiratory Rate - - Oxygen Saturation 97% 09/03/2024 3:05 PM CDT Inhaled Oxygen Concentration - - Weight 85.5 kg (188 lb 6.4 oz) 09/03/2024 3:05 P M CDT Height 182.9 cm (6') 09/03/2024 3:05 PM CDT Body Mass Index 25.55 09/03/2024 3:05 PM CDT Plan of Treatment Health Maintenance Due Date Last Done Comments Colon Cancer Screening-Colonoscopy 1955 Depression Screening 1955 Fall Risk Assessment 1955 Hepatitis C Screening 1955 DTaP/Tdap/Td Vaccine (1 - Tdap) 1965 Hepatitis B Screening 1972 Pneumococcal vaccine 65+ (1 of 2 - PCV) 1973 Zoster Vaccine (2 of 3) 08/01/2015 06/06/2015 Well Visit 65+ 08/27/2019 Influenza Vaccine (Season Ended) 2025 01/13/20 19, 01/27/2018 Procedures Procedure Name Priority Date/Time Associated Diagnosis Comments TRANSTHORACIC ECHO (TTE) COMPLETE W DOPPLER/CF WO CONTRAST Routine 09/14/2024 8:09 AM CDT Mitral valve disease from Last 3 Months Results * TRANSTHORACIC ECHO (TTE) COMPLETE W DOPPLER/CF WO CONTRAST (09/14/2024 8:09 AM CDT) EF Mod BP 51 % CONS SCIMAGE Anatomical Region Laterality Modality Ultrasound 09/14/2024 7:0 4 AM CDT Narrative 09/14/2024 9:42 AM CDT [facility] [place] [address] Transthoracic Echocardiographic Report Patient Name: MATTHEW HOUSE G : 1955 (69y ) Gender: M Study Date: 09/14/2024 07:04:20 AM Ht(Inch): 72 Wt(Lb): 188.05 BSA: 2.08 Radiology Manager: Hattie Moran RDCS, [facility] Location: [facility] Order Provider: AASHISH PEARCE Heart Rate: 67 BMI: 25.5 BP: 143 / 74 Ref Provider: AASHISH PEARCE PROCEDURES: Echocardiographic Report: Transthoracic complete echo with strain imaging, 2D, spectral and tissue Doppler, color flow Doppler, M-mode. 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 CONCLUSIONS: 1. Normal left ventricular size based on volume index. Concentric LV remodeling. Mildly depressed left ventricular systolic function. The Ejection Fraction (Dumas's) is measured at 51 %. The average global longitudinal strain is abnormal. 2. Normal right ventricular size. Normal right ventricular systolic function. 3. Status post mitral valve repair with annuloplasty ring. ATTESTATION: I have personally reviewed and interpreted this study without fellow or resident. - DISCLAIMER: The study images and the final report will be retained in the patient chart by the Echo Laboratory for the legally required time period. This chart constitutes the legal record of any testing performed. FINDINGS: Left Ventricle: Normal left ventricular size based on volume index. Concentric LV remodeling. Mildly depressed left ventricular systolic function. The Ejection Fraction (Dumas's) is measured at 51 %. The average global longitudinal strain is abnormal. The LV global strain is: -14.7 %. Right Ventricle: Normal right ventricular size. Normal right ventricular systolic function. Left Atrium: The left atrium is normal in size. Right Atrium: The right atrium is normal in size. Mitral Valve: Normal Mitral Valve Structure. Mitral valve leaflets appear mildly thickened. Mild mitral valve regurgitation. The mitral valve area by pressure half-time is 1.8 cm2. The mean transmitral gradient is: 1 mmHg. Specific MV Structure Abnormalities: Status post mitral valve repair with annuloplasty ring. Aortic Valve: Normal trileaflet aortic valve. No aortic regurgitation. No aortic valve stenosis. Tricuspid Valve: Normal tricuspid valve structure. No tricuspid regurgitation. No tricuspid valve stenosis. Pulmonic Valve: Normal Pulmonic Valve Structure. Mild pulmonic regurgitation. Pericardium: Normal pericardium without pericardial effusion. Aorta: Normal aortic root size at sinuses of Valsalva. Normal aortic root size when indexed. The ascending aorta is normal in size when indexed. PASP: Normal estimated pulmonary artery systolic pressure. Rhythm: Normal Sinus rhythm was seen during the study. MEASUREMENTS: 2D/MM Value Range Doppler Value Range LVIDd 2D 4.55 cm [ 4.20 - 5.80 ] AV Peak Mike 1.0 m/s [ 1.0 - 1.7 ] LVIDs 2D 3.38 cm [ 2.50 - 4.00 ] AV Peak PG 4.00 mmHg IVSd 2D 1.28 cm [ 0.60 - 1.00 ] AV Mean PG 2 mmHg LVPWd 2D 0.98 cm [ 0.60 - 1.00 ] AV VTI 23.2 cm LV Thickness Ratio 1.3 LVOT Peak Mike 1.0 m/s [ 0.7 - 1.1 ] LV FS 2D 25.69 % [ 25.00 - 43.00 ] LVOT Peak PG 4.00 mmHg LV Mass 2D 188.01 g LVOT Mean PG 2 mmHg LV Mass Index 2D 90.39 g/m2 LVOT VTI 21.4 cm RWT 0.43 LVOT Diam 2.46 cm EDV Mod BP 102.30 ml [ 62.00 - 150.00 ] ENRIQUE VTI 4.38 cm2 LV EDV Index 49.18 ml/m2 LVOT/AV VTI 0.92 - Dimensionless index (DVI) ESV Mod BP 50.04 ml [ 21.00 - 61.00 ] MV E Peak Mike 0.8 m/s [ 0.6 - 1.3 ] EF Mod BP 51 % [ 52 - 72 ] MV A Peak Mike 0.7 m/s [ 1.0 - 1.2 ] LV GLS -14.7 % [ -25.0 - -18.0 ] MV E/A 1.0 ratio [ 0.8 - 1.5 ] LA Length 4C 4.52 cm MV Peak Mike 0.8 m/s LA Length 2C 4.42 cm MV Peak PG 2.56 mmHg LA Volume BP 41.69 ml MV Mean PG 1 mmHg LA Volume Index 20.04 ml/m2 [ 16.00 - 34.00 ] MV VTI 20.6 cm RV Base Dimen 2D 2.9 cm [ 2.5 - 4.2 ] MV PHT 121.78 msec [ 20.00 - 100.00 ] TAPSE 1.87 cm [ 1.71 - 5.00 ] MVA PHT 1.81 cm2 RA Volume 37.93 ml MV Decel Time 227.60 msec [ 104.00 - 258.00 ] RA Volume Index 18.24 ml/m2 Med E` Mike 4.9 cm/sec [ 8.0 - 25.0 ] AoR Diam 2D 3.58 cm [ 3.10 - 3.70 ] Lat E` Mike 8.2 cm/sec [ 10.0 - 25.0 ] Ao Root Index 1.72 cm/m2 [ 1.00 - 2.00 ] Average E/E` 12.21 Asc Ao Diam 2D 3.15 cm MV Alias Mike 0 m/s Asc Ao Index 1.51 cm/m2 MR Flow 0.00 ml/sec MR PISA 0.4 RV S` 8.94 cm/sec PV Peak Mike 1.1 m/s [ 0.4 - 0.8 ] PV Peak PG 4.84 mmHg PI Peak Mike 1.7 m/s PI ED Mike 80.37 m/sec PI Peak PG 11 mmHg PI PHT 379.01 sec Electronically Signed By: Ifeanyi Mercado MD 09/14/2024 9:41:46 AM CDT CC: Aashish Pearce M.D. Procedure Note Ifeanyi Mercado MD - 09/14/2024 [facility] [place] [address] Transthoracic Echocardiographic Report Patient Name: MATTHEW HOUSE G : 1955 (69y ) Gender: M Study Date: 09/14/2024 07:04:20 AM Ht(Inch): 72 Wt(Lb): 188.05 BSA: 2.08 Radiology Manager: Hattie Moran RDCS, [facility] Location: [facility] Order Provider:AASHISH PEARCE Heart Rate: 67 BMI: 25.5 BP: 143 / 74 Ref Provider: AASHISH PEARCE PROCEDURES: Echocardiographic Report: Transthoracic complete echo with strain imaging,2D, spectral and tissue Doppler, color flow Doppler, M-mode. 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 CONCLUSIONS: 1. Normal left ventricular size based on volume index. Concentric LVremodeling. Mildly depressed left ventricular systolic function. The Ejection Fraction(Dumas's) is measured at 51 %. The average global longitudinal strain is abnormal. 2. Normal right ventricular size. Normal right ventricular systolicfunction. 3. Status post mitral valve repair with annuloplasty ring. ATTESTATION: I have personally reviewed and interpreted this study without fellow orresident. - DISCLAIMER: The study images and the final report will be retained in the patientchart by the Echo Laboratory for the legally required time period. This chart constitutesthe legal record of any testing performed. FINDINGS: Left Ventricle: Normal left ventricular size based on volume index.Concentric LV remodeling. Mildly depressed left ventricular systolic function. TheEjection Fraction (Dumas's) is measured at 51 %. The average global longitudinal strain isabnormal. The LV global strain is: -14.7 %. Right Ventricle: Normal right ventricular size. Normal right ventricularsystolic function. Left Atrium: The left atrium is normal in size. Right Atrium: The right atrium is normal in size. Mitral Valve: Normal Mitral Valve Structure. Mitral valve leaflets appearmildly thickened. Mild mitral valve regurgitation. The mitral valve area bypressure half-time is 1.8 cm2. The mean transmitral gradient is: 1 mmHg. Specific MVStructure Abnormalities: Status post mitral valve repair with annuloplasty ring. Aortic Valve: Normal trileaflet aortic valve. No aortic regurgitation. Noaortic valve stenosis. Tricuspid Valve: Normal tricuspid valve structure. No tricuspidregurgitation. No tricuspid valve stenosis. Pulmonic Valve: Normal Pulmonic Valve Structure. Mild pulmonicregurgitation. Pericardium: Normal pericardium without pericardial effusion. Aorta: Normal aortic root size at sinuses of Valsalva. Normal aortic rootsize when indexed. The ascending aorta is normal in size when indexed. PASP: Normal estimated pulmonary artery systolic pressure. Rhythm: Normal Sinus rhythm was seen during the study. MEASUREMENTS: 2D/MM Value Range DopplerValue Range LVIDd 2D 4.55 cm [ 4.20 - 5.80 ] AV Peak Vel1.0 m/s [ 1.0 - 1.7 ] LVIDs 2D 3.38 cm [ 2.50 - 4.00 ] AV Peak PG4.00 mmHg IVSd 2D 1.28 cm [ 0.60 - 1.00 ] AV Mean PG2 mmHg LVPWd 2D 0.98 cm [ 0.60 - 1.00 ] AV VTI23.2 cm LV Thickness Ratio 1.3 LVOT Peak Vel1.0 m/s [ 0.7 - 1.1 ] LV FS 2D 25.69 % [ 25.00 - 43.00 ] LVOT Peak PG4.00 mmHg LV Mass 2D 188.01 g LVOT Mean PG2 mmHg LV Mass Index 2D 90.39 g/m2 LVOT VTI21.4 cm RWT 0.43 LVOT Diam2.46 cm EDV Mod BP 102.30 ml [ 62.00 - 150.00 ] ENRIQUE VTI4.38 cm2 LV EDV Index 49.18 ml/m2 LVOT/AV VTI0.92 - Dimensionless index (DVI) ESV Mod BP 50.04 ml [ 21.00 - 61.00 ] MV E Peak Vel0.8 m/s [ 0.6 - 1.3 ] EF Mod BP 51 % [ 52 - 72 ] MV A Peak Vel0.7 m/s [ 1.0 - 1.2 ] LV GLS -14.7 % [ -25.0 - -18.0 ] MV E/A1.0 ratio [ 0.8 - 1.5 ] LA Length 4C 4.52 cm MV Peak Vel0.8 m/s LA Length 2C 4.42 cm MV Peak PG2.56 mmHg LA Volume BP 41.69 ml MV Mean PG1 mmHg LA Volume Index 20.04 ml/m2 [ 16.00 - 34.00 ] MV VTI20.6 cm RV Base Dimen 2D 2.9 cm [ 2.5 - 4.2 ] MV EXY228.78 msec [ 20.00 - 100.00 ] TAPSE 1.87 cm [ 1.71 - 5.00 ] MVA PHT1.81 cm2 RA Volume 37.93 ml MV Decel Zplo021.60 msec [ 104.00 - 258.00 ] RA Volume Index 18.24 ml/m2 Med E` Vel4.9 cm/sec [ 8.0 - 25.0 ] AoR Diam 2D 3.58 cm [ 3.10 - 3.70 ] Lat E` Vel8.2 cm/sec [ 10.0 - 25.0 ] Ao Root Index 1.72 cm/m2 [ 1.00 - 2.00 ] Average E/E`12.21 Asc Ao Diam 2D 3.15 cm MV Alias Vel0 m/s Asc Ao Index 1.51 cm/m2 MR Flow0.00 ml/sec MR PISA 0.4 RV S` 8.94 cm/sec PV Peak Mike 1.1 m/s [ 0.4 - 0.8 ] PV Peak PG 4.84 mmHg PI Peak Mike 1.7 m/s PI ED Mike 80.37 m/sec PI Peak PG 11 mmHg PI PHT 379.01 sec Electronically Signed By: Ifeanyi Mercado MD 09/14/2024 9:41:46 AM CDT CC: Aashish Pearce M.D. Aashish Pearce MD CV ECHO PROCEDURES Fin al Result from Last 3 Months Insurance MEDICARE [facility] Address: [address] [phone] MEDICARE [facility] Address: [facility] [address] [place] [address] Care Teams Styrene Dehydration Reactor Operator Relationship Specialty Start Date End Date Mary Estrada MD PCP - General Family Medicine 08/30/22
--- OUTSIDE RECORDS SUMMARY | 2024-10-22 09:34 | XMS_ITS | Clinical Summary ---
Author Organization [facility] Address [address] [place] [address] Care Team Providers Care Director Of Rehabilitative Services Name Role Phone Unavailable Primary Care Provider Unavailabl e Source Comments [facility],non-owned Affiliates and Associated Physician Practices is amultiple site organization consisting of ambulatory clinics and hospital sitesin [place], [place], [place] and [place]. This disclosure is being madepursuant to the Care Everywhere program and may not contain all information available regarding this patient. Last updated 18.[facility] [employer] Social History Tobacco Use Types Packs/Day Years [...] VACCINE (1 of 2) 2004 COVID-19 VACCINE ( - 2023-2 5 season) 2024 DEPRESSION SCREENING 05/09/2024 MEDICARE AWV CALENDAR YEAR 2024 INFLUENZA VACCINE (Season Ended) 2025 Respiratory Syncytial Virus (RSV) Vaccine Pt: or [...] to complete this topic MENINGOCOCCAL (Group B) VACC INE SHARED DECISION-MAKING Aged Out No longer eligibl e based on patient's age to complete this topic MENINGOCOCCAL GROUPS A/C/Y/W VACCINE Aged Out No longer eligible b ased on patient's age to complete this topic Insurance [facility] MANAGED MEDICARE ADV [facility] MANAGED MEDICARE ADV SELF PAY NO INSURANCE Member Subscriber Plan / Payer (Ef fective for All Dates) Name:Kali House Member ID:Not on file Relation to Subscriber:Not on file Name:KALI HOUSE Subscriber ID:Not on file (Home) Address: [address] [place] [phone] Payer ID:Not on file Group ID:Not on file Type:Self Pay Address: [place], [place]
--- OUTSIDE RECORDS SUMMARY | 2024-10-22 09:34 | XMS_ITS | Encounter Summary ---
Author Organization [facility] Address [address] [place] [address] Care Team Providers Care Hand Slitter Name Role Phone Unavailable Primary Care Provider Unavailabl e Encounter Details Date Type Department Care Team (Late st Contact Info) Description 04/11/2023 Lab Requisition [facility] - DermPath Lab [address] [place] [address] Yvonne Schuster PA-C [address] [place] [phone] Neoplasm of uncertain behavior of skin [...] Comments DERMATOPATHOLOGY Routine 04/11/2023 12:0 0 AM [facility] Neoplasm of uncertain behavior of skin documented in this encounter Results * DERMATOPATHOLOGY (04/11/2023 12:00 AM [facility]) Case Report Dermatopathology Report Case: [id number] Authorizing Provider: Yvonne Schuster PA-C Collected: 04/11/2023 12:00 AM Ordering Location: [facility] DermPath Lab Received: 04/12/2023 10:53 AM Pathologist: Yvonne White MD Specimen: Skin, left lower back 1:00 PM [facility] DERMATOPATHOLOGY LABORATORY Final Diagnosis Specimen A. SKIN, left lower back: COMPOUND MELANOCYTIC PROLIFERATION WITH UNDERLYING DERMAL FIBROSIS; PRESENT AT MARGIN (D48.5) (see microscopic description and comment) 1:00 PM [facility] DERMATOPATHOLOGY LABORATORY at [address] [facility] Clinical History Atypical Nevus 1:00 PM [facility] DERMATOPATHOLOGY LABORATORY Gross Description Specimen A: Received is one formalin filled container labeled with the patient's name and designated left lower back. The specimen consists of a shave biopsy measuring 6x6x1 mm. Jar 0. 1:00 PM [facility] DERMATOPATHOLOGY LABORATORY Microscopic Description Specimen A. [...] the prior biopsy at the same location ([id number]), the architectural and cytological atypia is concerning. Because this lesion is present at the margin of the specimen, symmetry and circumscription can not be evaluated. Therefore, a complete but conservative re-excision is recommended to evaluate this lesion in its entirety. This case was also reviewed by Dr. Kaitlin Lopez who agrees with the diagnosis. 1:00 PM [facility] DERMATOPATHOLOGY LABORATORY Disclaimer An external and internal positive and negative controls are appropriate for the histochemical, immunohistochemical and immunofluorescence stain(s) in this case (if any), except where stated explicitly. The performance characteristics of the stain(s) cited in this report were developed and its performance characteristic determined by the Dermatopathology Laboratory at [facility], directed by Dr. Melissa De Guzman. These tests need not be, and therefore are not, approved by the [place] Food and Drug Administration. The tests are used for clinical purposes. Billing Codes Specimen Charges Stain Charges 09673 1 75643 1 1:00 PM [facility] DERMATOPATHOLOGY LABORATORY Embedded Images 1:00 PM [facility] DERMATOPATHOLOGY LABORATORY Pathology/Cytolog y TISSUE SPECIMEN FROM SKIN / Unknown 04/11/2023 04/12/2023 10:53 AM [facility] Yvonne Schuster PA-C LAB - PATHOLOGY/CYTOLOGY JENY BARRY Final Result DERMATOPATHOLOGY LABORATORY [facility] - Department of Dermatology [facility] Medicine [address] [place] [address], [address] [phone] documented in this encounter Visit Diagnoses Diagnosis Neoplasm of uncertain behavior of skin documented in this encounter
--- OUTSIDE RECORDS SUMMARY | 2024-10-22 09:34 | XMS_ITS | Encounter Summary ---
Author Organization [facility] Address [address] [place] [address] Care Team Providers Care Preprint Analyst Name Role Phone Unavailable Primary Care Provider Unavailabl e Encounter Details Date Type Department Care Team (Late st Contact Info) Description 07/07/2023 Lab Requisition [facility] - DermPath Lab [address] [place] [address] Yash Lewis MD [facility] DERMATOLOGY [address] [place] [phone] Melanocytic nevi of trunk Social History [...] Diagnosis Comments DERMATOPATHOLOGY Routine 07/07/2023 3:33 AM ORIENTAL MEDICINE PRACTITIONER Melanocytic nevi of trunk documented in this encounter Results * DERMATOPATHOLOGY (07/07/2023 3:33 AM ORIENTAL MEDICINE PRACTITIONER) Case Report Dermatopathology Report Case: [id number] Authorizing Provider: Yash Lewis MD Collected: 07/07/2023 03:33 AM Ordering Location: [facility] - Received: 07/08/2023 12:23 PM DermPath Lab Pathologist: Yvonne White MD Specimen: Skin, left lower back 1:59 PM ORIENTAL MEDICINE PRACTITIONER DERMATOPATHOLOGY LABORATORY Final Diagnosis Specimen A. SKIN, left lower back: RESIDUAL COMPOUND MELANOCYTIC NEVUS (D22.5) NOT PRESENT AT MARGIN DERMAL SCAR (L90.5) (see microscopic description and comment) 1:59 PM [facility] DERMATOPATHOLOGY LABORATORY at 1359 ORIENTAL MEDICINE PRACTITIONER Clinical History Atypical Nevus. Check margins. 1:59 PM [facility] DERMATOPATHOLOGY LABORATORY Gross Description Specimen A: Received is one formalin filled container labeled with the patient's name and designated left lower back. The specimen consists of a non-oriented ellipse of skin measuring [id number] mm. The epidermal surface is unremarkable. The margin is inked green. The 12 o'clock and 6 o'clock tips are submitted in cassette 1. The remainder of the ellipse is serially sectioned and submitted in cassette 2-4. Jar 0. 1:59 PM [facility] DERMATOPATHOLOGY LABORATORY Microscopic Description Specimen A. [...] Given the findings in this specimen and [id number], [id number] is favored to represent partial sampling of a persistent/recurren t nevus. 1:59 PM [facility] DERMATOPATHOLOGY LABORATORY Disclaimer An external and internal positive and negative controls are appropriate for the histochemical, immunohistochemical and immunofluorescence stain(s) in this case (if any), except where stated explicitly. The performance characteristics of the stain(s) cited in this report were developed and its performance characteristic determined by the Dermatopathology Laboratory at [facility], directed by Dr. Melissa De Guzman. These tests need not be, and therefore are not, approved by the [place] Food and Drug Administration. The tests are used for clinical purposes. Billing Codes Specimen Charges Stain Charges 07808 1 39092 1 1:59 PM [facility] DERMATOPATHOLOGY [facility]ORATORY Embedded Images 03/05/202 4 1:59 PM ORIENTAL MEDICINE PRACTITIONER DERMATOPATHOLOGY LABORATORY Pathology/Cytolo gy TISSUE SPECIMEN FROM SKIN / Unknown 07/07/2023 3:33 AM ORIENTAL MEDICINE PRACTITIONER 07/08/2023 12:23 PM ORIENTAL MEDICINE PRACTITIONER us Yash Lewis MD LAB - PATHOLOGY/CYTOLOGY MINDYE ASHA Final Result DERMATOPATHOLOGY LABORATORY [facility] - Department of Dermatology Formerly [facility] Medicine [address] [place] [address], [address] [phone] documented in this encounter Visit Diagnoses Diagnosis Melanocytic nevi of trunk Benign neoplasm of skin of trunk, except scrotum documented in this encounter
--- OUTSIDE RECORDS SUMMARY | 2024-10-22 09:34 | XMS_ITS | Encounter Summary ---
Author Organization [facility] Address [address] [place] [address] Phone Care Team Providers Care Gauger Chief Name Role Phone Mary Estrada MD Primary Care Provider + Encounter Details Date Type Department Care Team (Late st Contact Info) Description 09/14/2024 Results Follow-Up 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
--- OUTSIDE RECORDS SUMMARY | 2024-10-22 09:34 | XMS_ITS | Encounter Summary ---
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 Name Role Phone Unavailable Primary Care Provider Unavailabl e Encounter Details Date Type Department Care Team (Late st Contact Info) Description 09/27/2022 Lab Requisition [facility] - DermPath Lab [address] [place] [address] Yvonne Schuster PA-C [address] [place] [phone] Neoplasm of uncertain behavior of skin [...] AM CDT) Case Report Dermatopathology Report Case: [id number] Authorizing Provider: Yvonne Schuster PA-C Collected: 09/27/2022 12:00 AM Ordering Location: [facility] DermPath Lab Received: 09/28/2022 03:35 PM Pathologist: Janis De Guzman MD Specimen: Skin, left lower back 5:50 PM CDT DERMATOPATHOLOGY LABORATORY Final Diagnosis Specimen A. 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 The specimen consists of a shave biopsy measuring [id number]. Jar 0. 3 5:50 PM CDT DERMATOPATHOLOGY [...] characteristic determined by the Dermatopathology Laboratory at [facility], directed by Dr. Melissa De Guzman. These tests need not be, and therefore are not, approved by the [place] Food and Drug Administration. The tests are used for clinical purposes. Billing Codes Specimen Charges Stain Charges 95503 1 3 5:50 PM CDT DERMATOPATHOLOGY LABORATORY Embedded Images 3 5:50 PM CDT DERMATOPATHOLOGY LABORATORY Pathology/Cytolog y TISSUE SPECIMEN FROM SKIN / Unknown 09/27/2022 09/28/2022 3:35 PM CDT Yvonne Schuster PA-C LAB - PATHOLOGY/CYTOLOGY JENY BARRY Final Result DERMATOPATHOLOGY LABORATORY [facility] - Department of Dermatology [address], [address] [phone] documented in this encounter Visit Diagnoses Diagnosis Neoplasm of uncertain behavior of skin documented in this encounter
--- OUTSIDE RECORDS SUMMARY | 2024-10-22 09:34 | XMS_ITS | Referral Summary ---
Author Organization [facility] Address [address] [place] [address] Care Team Providers Care Control System Manager Name Role Phone Mary Estrada MD Primary Care Provider + Encounters Date Type Department Care Team Description 09/14/2024 Telephone [facility] Cardiology [address] [place] [address] [place] [phone] Celeste Recio 09/14/2024 Results Follow-Up [facility] Cardiology [address] [place] [address] [place] [address] Aashish Pearce MD Transthoracic Echo (TTE) Complete W Doppler/CF 09/14/2024 7:00 AM CDT - 09/14/2024 11:59 PM CDT Hospital Encounter [facility] Cardiac Diagnostic Lab [address] [place] [phone] Mitral valve disease Discharge Disposition: Discharge to home or self care 09/03/2024 3:00 PM CDT Office Visit [facility] Cardiology [address] [place] [address] [place] [address] Aashish Pearce MD Mitral valve disease (Primary Dx) from Last 3 Months Allergies Active Allergy Reactions Criticality Noted Date [...] total) by mouth daily 8 Active omega 5-tqz-ljg-fish oil (FISH OIL) 1,000 mg (120 mg-180 [...] Chest pain 09/14/2011 Mitral valve disease 06/15/2011 Social History Tobacco Use Types Packs/Day Years Used Date Smoking Tobacco: Never Smokeless Tobacco: Never Sex and Gender Information Value Date Recorded Sex Assigned at Not on file 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 Gender Identity Not on file Sexual Orientation Not on file Last Filed Vital Signs Vital Sign Reading Time Taken Comments Blood Pressure 123/78 09/03/2024 3:05 PM CDT Pulse 72 09/03/2024 3:05 PM CDT Temperature 36.7 C (98 F) 06/30/2020 3:28 PM LABORATORY MILLER Respiratory Rate - - Oxygen Saturation 97% 09/03/2024 3:05 PM CDT Inhaled Oxygen Concentration - - Weight 85.5 kg (188 lb 6.4 oz) 09/03/2024 3:05 P M CDT Height 182.9 cm (6') 09/03/2024 3:05 PM CDT Body Mass Index 25.55 09/03/2024 3:05 PM CDT Plan of Treatment Not on file Procedures Procedure Name Priority Date/Time Associated Diagnosis Comments TRANSTHORACIC ECHO (TTE) COMPLETE W DOPPLER/CF WO CONTRAST Routine 09/14/2024 8:09 AM CDT Mitral valve disease from Last 3 Months Results * TRANSTHORACIC ECHO (TTE) COMPLETE W DOPPLER/CF WO CONTRAST (09/14/2024 8:09 AM CDT) EF Mod BP 51 % CONS SCIMAGE Anatomical Region Laterality Modality Ultrasound 09/14/2024 7:04 AM CDT Narrative 09/14/2024 9:42 AM CDT [facility] [place] [address] Transthoracic Echocardiographic Report Patient Name: MATTHEW HOUSE G : 1955 (69y ) Gender: M Study Date: 09/14/2024 07:04:20 AM Ht(Inch): 72 Wt(Lb): 188.05 BSA: 2.08 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: [facility] Location[facility] Order Provider: AASHISH PEARCE Heart Rate: 67 [...] Procedure Note Ifeanyi Mercado MD - 09/14/2024 [facility] [place] [address] [place] [address] Transthoracic Echocardiographic Report Patient Name: MATTHEW HOUSE G : 1955 (69y ) Gender: M Study Date: 09/14/2024 07:04:20 AM Ht(Inch): 72 Wt(Lb): 188.05 BSA: 2.08 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: Hattie Moran RDCS [facility] Location: [facility] Order Provider:AASHISH PEARCE Heart Rate: 67 BMI: [...] cm [ 2.5 - 4.2 ] MV WXS731.78 msec [ 20.00 - 100.00 ] TAPSE 1.87 cm [ 1.71 - 5.00 ] MVA PHT1.81 cm2 RA Volume 37.93 ml MV Decel Fvty811.60 msec [ 104.00 - 258.00 ] RA [...] from Last 3 Months Insurance MEDICARE ADVANTAGE MEDICARE ADVANTAGE Care Teams Control System Manager Relationship Specialty Start Date End Date Mary Estrada MD PCP - General Family Medicine 08/30/22
[2024-10-22 22:04] LABS: Alanine Aminotransferase 38 U/L (6-50); Albumin Level 4.2 g/dL (3.5-5.1); Alkaline Phosphatase 99 U/L (38-126); Anion Gap 6 mmol/L (4-12); Aspartate Amino Transferase 45 U/L (17-59); Bilirubin,Total 0.8 mg/dL (0.2-1.3); Blood Urea Nitrogen 12 mg/dL (9-20); Calcium 9.5 mg/dL (8.4-10.2); Carbon Dioxide 30 mmol/L (22-30); Chloride 102 mmol/L (98-107); Cholesterol 147 mg/dL (0-200); Estimated Glomerular Filt Rate > 60; Glucose 94 mg/dL (65-110); HDL Direct 28 mg/dL; Potassium 4.3 mmol/L (3.4-5.0); Sodium 138 mmol/L (137-145); Triglycerides 354 mg/dL (<150)
[2024-10-22 22:16] LABS: LDL Cholesterol Direct 61 mg/dL
== END 2024-10-22 09:10 | disposition home or self-care (01) ==
LOC: ANHGOSHLAB 09:10
PROVIDERS: PCP Family Medicine; Visit Provider Family Medicine
DX: E78.2 Mixed hyperlipidemia (principal)
CPT/HCPCS: 36415; 80053; 80061

== ENCOUNTER 2025-04-08 08:20 | Emergency (ER) | payer MEDICARE, SELFPAY ==
[2025-04-08 08:41] VITALS: BP 130/84; PULSE 94; RESP 16; TEMP 36.2; O2SAT 97
[2025-04-08 08:47] LABS: EDCOVIDSCREEN Negative (Negative); EDINFLUASCREEN Negative (Negative); EDINFLUBSCREEN Negative (Negative); EDSTREPNEGPOS1 Positive (Negative)
--- NOTE | 2025-04-08 08:55 | ED.URI ---
HPI - URI/Sore Throat General Chief Complaint: Upper Respiratory Infection Stated Complaint: sinus infection symptoms Time Seen by Provider: 04/08/25 08:37 Source: patient and RN notes reviewed Mode of arrival: ambulatory Limitations: no limitations History of Present Illness HPI Narrative: 69 year old male patient presents today complaining of 3 day history of sore throat, mild cough, nasal congestion. Denies fever shortness of breath. He has been taking Mucinex with some improvement. No recent antibiotic use. History of sleep apnea and uses CPAP. No history of COPD or asthma. Related Data Home Medications ?Medication ?Instructions ?Recorded ?Confirmed ?Last Taken ?Type aspirin 81 mg tablet,delayed 81 mg PO DAILY 08/24/19 10/24/24 06/28/24 History release multivitamin 1 tablet PO DAILY 01/20/22 10/24/24 06/29/24 History triamcinolone acetonide 0.025 % 1 applic topical BID PRN rash 03/22/24 10/24/24 06/29/24 History topical cream carboxymethylcellulose sodium 1 % 1 drp EACH EYE DAILY 06/25/24 10/24/24 06/28/24 History eye liquid gel drops elderberry fruit 200 mg capsule 200 mg PO DAILY 06/25/24 10/24/24 06/28/24 History Allergies Allergy/AdvReac Type Severity Reaction Status Date / Time naproxen Allergy Unknown urinates Verified 04/08/25 08:55 alot PMFSH Past Medical History Medical History Polycythemia COVID-26 apr 2020 Hypothyroidism (acquired) Mixed hyperlipidemia Surgical History Surgical History Hx of cholecystectomy H/O mitral valve repair 2011 Hx of hernia repair Family History Family History Other Carcinoma of colon Cerebrovascular accident Hypertension Social History Social History Smoking status: Never smoker Alcohol intake: current Alcohol use details: rarely Substance use: never Substance use type: does not use Lack of Transportation: No Lack of Food: Never True Current Housing: I Have Housing Concerned About Future Housing: No Difficulty Paying Gas/Electric Bills: No Difficulty Paying for Meds: No Currently Unemployed: No Education: High School Diploma/GED Living arrangements: with family Spiritual care concerns: No Comments At time of signature, I have reviewed and agree with nursing past medical, surgical, social and family history unless otherwise noted. Please see nursing chart for further information. There is no relevant family history pertinent to the presenting complaint Exam Narrative: GENERAL: Well-appearing, well-nourished, and in no acute distress. HEAD: Normocephalic, atraumatic. EYES: EOMI. No redness or drainage. Conjunctivae normal. ENT: Mucous membranes pink and moist. Nares mildly congested with rhinorrhea. TMs normal bilaterally. Throat mildly erythematous without edema or exudate. Uvula midline. NECK: Normal AROM. Supple. No lymphadenopathy. CHEST: No respiratory distress. Clear to auscultation. HEART: Regular rate and rhythm. No murmur appreciated. EXTREMITIES: Normal range of motion. No edema. SKIN: Warm, dry, no rash. Capillary refill normal. Normal skin turgor. NEURO: No focal deficits. Alert and oriented x3. Gait steady. PSYCH: Normal affect. No signs of depression or anxiety. Course Course Level of Care: Express Care Visit Vital Signs Vital signs: Vital Signs Temperature 97.1 F L 04/08/25 08:41 Pulse Rate 94 04/08/25 08:41 Respiratory Rate 16 04/08/25 08:41 Blood Pressure 130/84 04/08/25 08:41 Pulse Oximetry 97 04/08/25 08:41 Temperature 97.1 F L 04/08/25 08:41 Pulse Rate 94 04/08/25 08:41 Respiratory Rate 16 04/08/25 08:41 Blood Pressure 130/84 04/08/25 08:41 Pulse Oximetry 97 04/08/25 08:41 Reviewed MDM - URI/Sore Throat MDM Narrative Medical decision making narrative: 69 year old male patient presents today complaining of 3 day history of sore throat, mild cough, nasal congestion. Denies fever shortness of breath. He has been taking Mucinex with some improvement. No recent antibiotic use. History of sleep apnea and uses CPAP. No history of COPD or asthma. Upon exam, patient has some mild nasal congestion, rhinorrhea, mildly erythematous throat without edema or exudate. COVID and influenza negative. Rapid strep positive. Will treat with amoxicillin. Patient agrees with plan. Vital signs stable. Anticipatory guidance and ED precautions given. Differential Diagnosis Differential diagnosis: Likely upper respiratory infection, viral infection, bronchitis, influenza, pharyngitis and other (Strep throat, COVID) Lab Data Attestation: I reviewed the patient's lab results. Labs: Lab Results 04/08/25 Range/Units 08:41 POC Influenza A Ag Negative (Negative) POC Influenza B Ag Negative (Negative) POC SARS CoV-2 Ag Negative (Negative) POC Grp A Strep Screen Positive (Negative) Critical Care Time Critical Care Time Critical Care Time: No Discharge Plan Discharge Clinical Impression: Strep throat Patient Disposition: Home Condition: Stable Instructions: Antibiotic Form, Strep Throat (ED) Additional Instructions: You have tested positive for strep throat. Please take the amoxicillin as prescribed until gone. You will be contagious for 24 hours after starting the medication. Take Tylenol for pain or fever, if able. You may continue the Mucinex if needed. Rest and stay hydrated. Follow up with your PCP in 3 days if symptoms are not improving. Go to the ER immediately if you have develops worsening symptoms such as shortness of breath, difficulty swallowing. Patient Language: Tajik Prescriptions: New amoxicillin 500 mg tablet 500 mg PO Q12H 10 Days Qty: 20 0RF No Action aspirin 81 mg tablet,delayed release (DR/EC) 81 mg PO DAILY multivitamin Tablet 1 tablet PO DAILY triamcinolone acetonide 0.025 % cream 1 applic topical BID PRN (Reason: rash) carboxymethylcellulose sodium 1 % drops, liquid gel 1 drp EACH EYE DAILY elderberry fruit 200 mg capsule 200 mg PO DAILY atorvastatin 10 mg tablet See Rx Instructions .ROUTE .COMPLEX Qty: 100 1RF Dose Instruction: TAKE 1 TABLET BY MOUTH DAILY Rx Instructions: TAKE 1 TABLET BY MOUTH DAILY levothyroxine 50 mcg tablet See Rx Instructions .ROUTE .COMPLEX Qty: 100 1RF Dose Instruction: TAKE 1 TABLET BY MOUTH DAILY Rx Instructions: TAKE 1 TABLET BY MOUTH DAILY Follow-up/Referrals: Pk Estrada MD [Primary Care Provider, [facility]] Time of Disposition: 09:03
== END 2025-04-08 09:05 | disposition home or self-care (01) ==
PROVIDERS: Emergency Provider Nurse Practitioner; PCP Family Medicine
DX: J02.0 Streptococcal pharyngitis (principal); Z20.822 Contact with and (suspected) exposure to COVID-19; E03.9 Hypothyroidism, unspecified; E78.2 Mixed hyperlipidemia; G47.30 Sleep apnea, unspecified; Z86.16 Personal history of COVID-19; Z79.82 Long term (current) use of aspirin
CPT/HCPCS: 87426; 87804; 87880; 99213; G0463

== ENCOUNTER 2025-04-15 10:12 | Outpatient (CLI) | payer MEDICARE, SELFPAY ==
[2025-04-15 18:57] LABS: Hematocrit 46.7 % (42.0-52.0); Hemoglobin 15.4 g/dL (14.0-18.0); Immature Granulocyte Percent A 0.8 % (0-0.5); Lymphocytes Absolute Auto 1.12 K/mm3 (0.9-3.2); Mean Corpuscular HGB Conc 33.0 g/dl (32-36); Mean Corpuscular Hemoglobin 32.9 pg (26-34); Mean Corpuscular Volume 99.8 fl (80-100); Nucleated Red Blood Cells Absolute Auto 0.000 K/mm3 (0.0-0.012); Nucleated Red Blood Cells Perc 0.0 % (0.0-0.2); Platelet Count Result 234 k/mm3 (150-375); Red Blood Count 4.68 M/mm3 (4.6-6.20); White Blood Count 7.1 K/mm3 (4.5-10.0)
[2025-04-15 19:00] LABS: Alanine Aminotransferase 26 U/L (6-50); Albumin Level 4.0 g/dL (3.5-5.1); Alkaline Phosphatase 117 U/L (38-126); Anion Gap 3 mmol/L (4-12); Aspartate Amino Transferase 50 U/L (17-59); Bilirubin,Total 0.7 mg/dL (0.2-1.3); Blood Urea Nitrogen 11 mg/dL (9-20); Calcium 9.5 mg/dL (8.4-10.2); Carbon Dioxide 30 mmol/L (22-30); Chloride 102 mmol/L (98-107); Cholesterol 120 mg/dL (0-200); Estimated Glomerular Filt Rate > 60; Glucose 86 mg/dL (65-110); HDL Direct 31 mg/dL; Potassium 4.5 mmol/L (3.4-5.0); Sodium 135 mmol/L (137-145); Total Protein 7.4 g/dL (6.3-8.2); Triglycerides 93 mg/dL (<150)
[2025-04-15 19:38] LABS: Prostate Specific Antigen 5.5 ng/mL (< OR = 4.0)
[2025-04-17 14:06] LABS: Thyroid Stimulating Hormone 3.270 uIU/mL (0.465-4.680)
== END 2025-04-15 10:13 | disposition home or self-care (01) ==
LOC: ANHGOSHLAB 10:13
PROVIDERS: Family Medicine; PCP Family Medicine; Visit Provider Student in an Organized Health Care Education/Training Program
DX: E78.2 Mixed hyperlipidemia (principal); E03.9 Hypothyroidism, unspecified; R97.20 Elevated prostate specific antigen [PSA]; I34.0 Nonrheumatic mitral (valve) insufficiency; D75.1 Secondary polycythemia
CPT/HCPCS: 36415; 80053; 80061; 84153; 84443; 85025